=== PATIENT | male | born 1945 | race Native Hawaiian/Other Pacific Islander ===

== ENCOUNTER 2017-03-27 10:45 | Inpatient (IN) | payer BC, MEDICARE ==
[2017-03-27] MEDS ORDERED: ONDANSETRON 4 MG/2 ML VIAL IVP STA (10:52)
[2017-03-27] MEDS ORDERED: SODIUM CHLORIDE 0.9% 1,000 ML IV STA (10:52)
[2017-03-27 11:16] LABS: Glucose,Whole Blood 162 mg/dL (75-99)
--- NOTE | 2017-03-27 11:22 | ED ---
General Adult HPI - General Chief complaint: Neuro Symptoms/Deficit Stated complaint: Stroke Time Seen by Provider: 03/27/17 10:52 Source: EMS, RN notes reviewed Mode of arrival: EMS Limitations: altered mental status, physical limitation - History of Present Illness Initial comments: Patient is a pleasant 72-year-old male presenting to the emergency department with concerns for stroke. Patient has some garbled speech and is a poor historian. Majority of history comes from EMS. Last known well was 9 PM last night. No known history of similar problems previously. Patient is a known diabetic and EMS reports that sugar 150. Patient denies any pain or confusion. Patient is able to move answer yes and no however speech is slurred and garbled. - Related Data Home Medications Medication Instructions Recorded Confirmed Atenolol [Tenormin] 50 mg PO DAILY 10/07/16 03/27/17 Fenofibrate Nanocrystallized 145 mg PO DAILY 10/07/16 03/27/17 [Fenofibrate] Multivitamins, Thera [Multivitamin] 1 tab PO DAILY 10/07/16 03/27/17 Petroleum-3 Acid Ethyl Esters [Lovaza] 2 gm PO BID 10/07/16 03/27/17 Pravastatin Sodium [Pravachol] 20 mg PO DAILY 10/07/16 03/27/17 Ramipril [Altace] 15 mg PO DAILY 10/07/16 03/27/17 glipiZIDE [Glucotrol] 5 mg PO AC-BRKFST 10/07/16 03/27/17 metFORMIN HCL [metFORMIN HCL ER] 500 mg PO QID 10/07/16 03/27/17 Levocetirizine Dihydrochloride 5 mg PO DAILY 03/27/17 03/27/17 Allergies Allergy/AdvReac Type Severity Reaction Status Date / Time Penicillins Allergy Rash/Hives Verified 10/10/16 07:20 Review of Systems ROS Statement: Those systems with pertinent positive or pertinent negative responses have been documented in the HPI. ROS Other: All systems not noted in ROS Statement are negative. Constitutional: Denies: fever Eyes: Denies: eye pain ENT: Denies: ear pain Respiratory: Denies: cough Cardiovascular: Denies: chest pain Endocrine: Denies: fatigue Gastrointestinal: Denies: abdominal pain Genitourinary: Denies: urgency Musculoskeletal: Denies: back pain Skin: Denies: rash Neurological: Denies: headache, confusion Past Medical History Past Medical History: Diabetes Mellitus, Hyperlipidemia, Hypertension History of Any Multi-Drug Resistant Organisms: None Reported Past Surgical History: Hernia Repair, Prostate Surgery Additional Past Surgical History / Comment(s): carpal tunnel jairo., hernia surgery x2 Past Anesthesia/Blood Transfusion Reactions: No Reported Reaction Past Psychological History: No Psychological Hx Reported Smoking Status: Never smoker Past Alcohol Use History: Occasional Past Drug Use History: None Reported - Past Family History Mother Family Medical History: No Reported History General Exam Limitations: altered mental status, physical limitation General appearance: alert, in no apparent distress Head exam: Present: atraumatic Eye exam: Present: normal appearance, PERRL, other (Limited gaze towards the right) ENT exam: Present: normal oropharynx Neck exam: Present: normal inspection Respiratory exam: Present: normal lung sounds bilaterally Cardiovascular Exam: Present: regular rate, normal rhythm GI/Abdominal exam: Present: soft. Absent: tenderness Extremities exam: Present: normal inspection Neurological exam: Present: alert Expanded Neurological exam: Present: protecting the airway, other (Right-sided neglect. Right facial palsy.) Speech: Present: expressive aphasia Cranial nerves: EOM's Intact: Abnormal Right, Abnormal Left (Abnormal gaze towards the right with both eyes), Facial Sensation: Normal Sensory exam: Upper Extremity Light Touch: Abnormal Right, Lower Extremity Light Touch: Abnormal Right Motor strength exam: RUE: 0 (Flaccid), LUE: 5, RLE: 0 (Flaccid), LLE: 5 Eye Response: (4) open spontaneously Motor Response: (6) obeys commands Verbal Response: incomprehensible sounds Psychiatric exam: Present: normal affect, normal mood Skin exam: Present: normal color Course Vital Signs 03/27/17 03/27/17 03/27/17 10:51 10:54 11:00 Temperature 98.5 F Pulse Rate 62 Respiratory 18 Rate Blood Pressure 202/84 194/84 202/84 O2 Sat by Pulse 98 Oximetry 03/27/17 03/27/17 03/27/17 11:06 11:21 11:47 Temperature Pulse Rate 68 59 L Respiratory 16 Rate Blood Pressure 183/81 200/75 200/75 O2 Sat by Pulse 100 100 Oximetry 03/27/17 12:07 Temperature Pulse Rate 68 Respiratory 16 Rate Blood Pressure 170/93 O2 Sat by Pulse 100 Oximetry EKG Findings - EKG Comments: EKG Findings:: Sinus bradycardia 59. OR 182. QRS 140. QTc 482. QTC 477. Left axis. Right bundle branch block. No acute ST change. Medical Decision Making - Medical Decision Making Patient reevaluated and unchanged. Family updated on results and concerns. Case was discussed with Dr. Zambrano, who will admit his patient. Patient is not a candidate for TPA secondary to last known well greater than 4.5 hours. - Lab Data Result diagrams: 03/27/17 10:57 Lab Results 03/27/17 03/27/17 03/27/17 Range/Units 10:57 10:57 11:11 WBC 6.4 (3.8-10.6) k/uL RBC 4.25 L (4.30-5.90) m/uL Hgb 14.6 (13.0-17.5) gm/dL Hct 41.0 (39.0-53.0) % MCV 96.6 (80.0-100.0) fL MCH 34.5 (25.0-35.0) pg MCHC 35.7 (31.0-37.0) g/dL RDW 13.0 (11.5-15.5) % Plt Count 280 (150-450) k/uL Neutrophils % 65 % Lymphocytes % 27 % Monocytes % 6 % Eosinophils % 0 % Basophils % 0 % Neutrophils # 4.1 (1.3-7.7) k/uL Lymphocytes # 1.7 (1.0-4.8) k/uL Monocytes # 0.4 (0-1.0) k/uL Eosinophils # 0.0 (0-0.7) k/uL Basophils # 0.0 (0-0.2) k/uL Hyperchromasia Slight PT 11.9 (9.0-12.0) sec INR 1.2 (<1.1) APTT 21.3 L (22.0-30.0) sec POC Glucose (mg/dL) 162 H (75-99) mg/dL POC Glu Ichthyology Teacher ID Nona Viera - Radiology Data Radiology results: image reviewed (Computed tomography scan of the brain read by Dr. Johnson at 11:21 AM shows subacute left MCA infarct.) Disposition Clinical Impression: Cerebrovascular accident Disposition: ADMITTED IP TO THIS HOSP Condition: Serious Time of Disposition: 11:34
--- NOTE | 2017-03-27 11:25 | CT ---
EXAMINATION TYPE: CT brain wo con for TPA DATE OF EXAM: 03/27/2017 COMPARISON: NONE HISTORY: Rt arm weakness, looking off to the Lt. Altered mental status CT DLP: 1090.4 mGycm Automated exposure control for dose reduction was used. FINDINGS: There are mild, generalized changes of sulcal prominence and ventriculomegaly, compatible with atroph ic change. There is diffuse periventricular white matter lucency, compatible with chronic white matte r ischemic change. There is loss of teixeira-white differentiation along the insular cortex and extending into the left parietal region. There is mild associated mass effect. There is no evidence of intracr anial hemorrhage. There is mild mucoperiosteal thickening involving the ethmoid sinuses and left maxillary sinus. The m astoid air cells are clear. IMPRESSION: 1. SUBACUTE LEFT MCA INFARCT. 2. MILD, CHRONIC SINUS MUCOSAL DISEASE.
--- NOTE | 2017-03-27 11:33 | XR ---
EXAMINATION TYPE: XR chest 1V portable DATE OF EXAM: 03/27/2017 HISTORY: altered mental status. REFERENCE: NONE. FINDINGS: The heart is enlarged. There is vascular congestion. There is interstitial change in the ri ght lung. There is bibasilar airspace disease. IMPRESSION: 1. CARDIOMEGALY. 2. MILD VASCULAR CONGESTION. 3. BIBASILAR AIRSPACE DISEASE. 4. I CANNOT EXCLUDE SOME MILD HEART FAILURE.
[2017-03-27 11:44] LABS: Basophils % (A) 0 %; CH 35.6; CHCM 37.1; Eosinophils % (A) 0 %; HDW 3.31; HGB 14.6 gm/dL (13.0-17.5); Hyperchromasia Slight; Luc # (Auto) 0.12; Luc % (Auto) 2; Lymphocytes # (A) 1.7 k/uL (1.0-4.8); Lymphocytes % (A) 27 %; MCH 34.5 pg (25.0-35.0); MCHC 35.7 g/dL (31.0-37.0); MCV 96.6 fL (80.0-100.0); Mean Platelet Volume 7.1; Monocytes # (A) 0.4 k/uL (0-1.0); Monocytes % (A) 6 %; Neutrophils # (A) 4.1 k/uL (1.3-7.7); Neutrophils % (A) 65 %; RBC 4.25 m/uL (4.30-5.90); WBC 6.4 k/uL (3.8-10.6); WBC (Perox) 6.42
[2017-03-27 11:53] LABS: INR 1.2 (<1.1); Prothrombin Time 11.9 sec (9.0-12.0)
[2017-03-27 11:56] LABS: Partial Thromboplastin Time 21.3 sec (22.0-30.0)
[2017-03-27 12:09] LABS: ALT 37 U/L (21-72); AST 28 U/L (17-59); Alkaline Phosphatase 23 U/L (38-126); Anion Gap 12 mmol/L; Blood Urea Nitrogen 13 mg/dL (9-20); Calcium 9.4 mg/dL (8.4-10.2); Carbon Dioxide 25 mmol/L (22-30); Chloride 106 mmol/L (98-107); Glucose 161 mg/dL (74-99); Non-African American GFR(MDRD) >60 (>60 ml/min/1.73 sqM); Potassium 3.8 mmol/L (3.5-5.1); Sodium 143 mmol/L (137-145); Total Bilirubin 1.1 mg/dL (0.2-1.3)
[2017-03-27] MEDS: ASPIRIN 300 MG SUPP RECTAL SCH (12:09)
[2017-03-27 12:21] LABS: Creatine Kinase 137 U/L (55-170)
[2017-03-27 12:35] LABS: Creatine Kinase MB 1.3 ng/mL (0.0-2.4); Troponin I <0.012 ng/mL (0.000-0.034)
--- NOTE | 2017-03-27 12:50 | US ---
EXAMINATION TYPE: US carotid duplex BILAT DATE OF EXAM: 03/27/2017 COMPARISON: NONE CLINICAL HISTORY: Stenosis. Right sided drooping EXAM MEASUREMENTS: RIGHT: Peak Systolic Velocity (PSV) cm/sec ----- Right CCA: 54.0 ----- Right ICA: 72.3 ----- Right ECA: 39.1 ICA/CCA ratio: 1.3 RIGHT: End Diastole cm/sec ----- Right CCA: 9.5 ----- Right ICA: 21.7 ----- Right ECA: 0.0 LEFT: Peak Systolic Velocity (PSV) cm/sec ----- Left CCA: 22.7 ----- Left ICA: only thumping heard, no detectable flow ----- Left ECA: only thumping heard, no detectable flow ICA/CCA ratio: N/A LEFT: End Diastole cm/sec ----- Left CCA: 7.8 ----- Left ICA: only thumping heard, no detectable flow ----- Left ECA: only thumping heard, no detectable flow VERTEBRALS (direction of flow): Right Vertebral: Antegrade Left Vertebral: Antegrade No flow detected left ICA or ECA, only thumping heard consistent with distal occlusion. IMPRESSION: 1. Occlusion of the distal left CCA. 2. No evidence of a hemodynamically significant stenosis in the right ICA. Criteria for Assigning % of Stenosis / Diameter reduction (Estimation based on the indirect measurements of the internal carotid artery velocities (ICA PSV). 1. Normal (no stenosis)=ICA PSV < 125 cm/s: ratio < 2.0: ICA EDV<40 cm/s. 2. Less than 50% stenosis=ICA PSV < 125 cm/s: ratio < 2.0: ICA EDV<40 cm/s. 3. 50 to 69% stenosis=ICA PSV of 125 to 230 cm/s: ration 2.0 ? 4.0: ICA EDV 40-100 cm/s. 4. Greater than 70% stenosis to near occlusion= ICA PSV > 230 cm/s: ratio > 4.0: ICA EDV > 100 cm/s. 5. Near occlusion= ICA PSV velocities may be low or undetectable: variable ratio and ICA EDV. 6. Total occlusion=unable to detect flow.
--- NOTE | 2017-03-27 20:22 | MR ---
EXAMINATION TYPE: MR brain wo/w con DATE OF EXAM: 03/27/2017 COMPARISON: NONE HISTORY: CVA, RT SIDE WEAKNESS AND NUMBNESS CONTRAST: Standard multiplanar, multisequence MRI departmental protocol utilizing 20 mL intravenous MultiHance gadolinium contrast. FINDINGS: On the diffusion images and T2 images there is abnormal increased signal involving a large area of the left temporal lobe. This measures 10 x 5 cm. There is no mass effect. There is no midline shift. Sella turcica appears normal. Brainstem is intact. Corpus callosum is intact. Contrast images show no pathologic enhancement. There is mild cerebral cortical atrophy. IMPRESSION: Large area of cerebral edema involving the left temporal lobe consistent with acute left middle cereb ral artery infarct. No mass effect. Area of involvement is unchanged compared to the CT scan this mor blanche at 11:00 AM.
[2017-03-27] MEDS: SODIUM CHLORIDE 0.9% 1,000 ML IV SCH ×2 (21:02→21:03)
--- NOTE | 2017-03-27 22:41 | P.CNNES ---
History of Present Illness Consult date: 03/27/17 Requesting physician: Tuan Lopez Reason for Consult: CVA Chief complaint: CVAright sided neglect History of Present Illness: Neurology consult seeing on a 72-year-old male who was brought to the emergency department for possible stroke earlier today. Patient was last known to be without deficits at 9 PM last night. Patient has no prior history of CVA or TIA. Patient is a known diabetic. At time of transfer with EMS patient sugar was 150. Patient denied any pain or confusion while in transport. Patient was initially able to answer questions but was noted to have slurred and garbled speech. ED staff determined that the patient was outside the TPA window. CT of the brain noted Atrophic changes, periventricular white matter lucency compatible with chronic white matter ischemic change. Loss of graywhite differentiation along the insular cortex and extending into the left parietal region. Mild mass effect. No evidence of intracranial hemorrhage. Patient's carotid Doppler study noted an occlusion of the left common carotid artery. Patient is known to have a history of hypertension, hyperlipidemia and diabetes. At contact, the patient was supine in bed, Alert and oriented 1, with right- sided neglect of Upper and lower extremities, right-sided facial droop, expressive aphasia and memory loss. Patient's speech was extremely slurred and garbled. Patient was unable to routinely respond appropriately to questions and verbal commands. Review of Systems Systems not noted in HPI previously are considered negative. Past Medical History Past Medical History: Diabetes Mellitus, Hyperlipidemia, Hypertension Additional Past Medical History / Comment(s): NIDDM type II, prostate cancer with surgery, diverticular dx History of Any Multi-Drug Resistant Organisms: None Reported Past Surgical History: Hernia Repair, Orthopedic Surgery, Prostate Surgery Additional Past Surgical History / Comment(s): carpal tunnel jairo., bilateral inguinal hernia surgeries, colonoscopy, bilateral cataract removal. Past Anesthesia/Blood Transfusion Reactions: No Reported Reaction Past Psychological History: No Psychological Hx Reported Additional Psychological History / Comment(s): Pt resides with his significant other of 30 yrs. He is independent. Smoking Status: Former smoker Past Alcohol Use History: Occasional Additional Past Alcohol Use History / Comment(s): Pt started smoking in 1962 and quit in 1982 Past Drug Use History: None Reported - Past Family History Mother Family Medical History: Myocardial Infarction (GA) Additional Family Medical History / Comment(s): Mother of a GA in her 80's Father Family Medical History: Myocardial Infarction (GA) Additional Family Medical History / Comment(s): Father of a GA in his 80's. Medications and Allergies Home Medications Medication Instructions Recorded Confirmed Type Atenolol [Tenormin] 50 mg PO DAILY 10/07/16 03/27/17 History Fenofibrate Nanocrystallized 145 mg PO DAILY 10/07/16 03/27/17 History [Fenofibrate] Multivitamins, Thera [Multivitamin] 1 tab PO DAILY 10/07/16 03/27/17 History Hollis-3 Acid Ethyl Esters [Lovaza] 2 gm PO BID 10/07/16 03/27/17 History Pravastatin Sodium [Pravachol] 20 mg PO DAILY 10/07/16 03/27/17 History Ramipril [Altace] 15 mg PO DAILY 10/07/16 03/27/17 History glipiZIDE [Glucotrol] 5 mg PO AC-BRKFST 10/07/16 03/27/17 History metFORMIN HCL [metFORMIN HCL ER] 500 mg PO QID 10/07/16 03/27/17 History Levocetirizine Dihydrochloride 5 mg PO DAILY 03/27/17 03/27/17 History Allergies Allergy/AdvReac Type Severity Reaction Status Date / Time Penicillins Allergy Rash/Hives Verified 10/10/16 07:20 Physical Examination - Vital Signs Vital Signs: Vital Signs Temp Pulse Pulse Resp BP BP Pulse Ox 03/27/17 20:00 97.1 F L 63 17 178/82 97 03/27/17 16:00 97.6 F 78 16 194/81 97 03/27/17 12:40 98.3 F 67 16 160/78 96 03/27/17 12:07 98.6 F 68 16 170/93 100 03/27/17 11:47 59 L 16 200/75 100 03/27/17 11:21 68 200/75 100 03/27/17 11:06 183/81 03/27/17 11:00 98.5 F 62 18 202/84 98 03/27/17 10:54 194/84 03/27/17 10:51 202/84 Intake and Output 03/27/17 03/27/17 03/27/17 06:59 14:59 22:59 Other: Voiding Method Diaper Diaper Weight 104.326 kg Patient Weight 03/28/17 06:59 Weight 104.326 kg Constitutional: AOx1, cooperative HEENT: NC/AT, no facial asymmetry is seen. Throat: Supple, no masses Respiratory: Patient on nasal cannula supplemental oxygen. Cardiac: Her telemetry documented normal sinus rhythm GI: non tender, non distended Musculoskeletal: Full right-sided neglect of upper and lower extremities, left- sided upper and lower extremities 3+ out of 5 Neurological: Patient is alert and oriented 1name only, speech and language are Garbled/expressive aphasia, unilateralizing Weakness/krunal-neglectright upper and lower extremity, no seizure activity note on physical exam. Sensation was Abnormal. Integementary: no rash, no erythema Psychiatric: Flat Results Carotid Doppler: Complete occlusion of the left CCA, right ICA no hemodynamically significant stenosis CT brain as previously stated in HPI MRI of the brain: Large area of cerebral edema involving the left temporal lobe consistent with acute left MCA infarct. No mass effect. Area of involvement is unchanged compared to CT scan in the morning at 11 AM. - Laboratory Findings CBC and BMP: 03/27/17 10:57 03/27/17 10:57 Abnormal Lab Findings: Abnormal Labs 03/27/17 03/27/17 03/27/17 10:57 10:57 10:57 RBC 4.25 L APTT 21.3 L Glucose 161 H POC Glucose (mg/dL) Alkaline Phosphatase 23 L 03/27/17 11:11 RBC APTT Glucose POC Glucose (mg/dL) 162 H Alkaline Phosphatase Assessment and Plan (1) Carotid stenosis, left Status: Acute (2) Type 2 diabetes mellitus Status: Acute (3) Hypertension Status: Acute (4) Hyperlipidemia Status: Acute (5) Cerebrovascular accident Status: Acute Plan: 1. CVAleft MCA 2. Carotid stenosisleft CCA 3. Hypertension 4. Hyperlipidemia 5. Type 2 diabetes CVA, carotid stenosis: Based on results of imaging, the patient has a confirmed significant left MCA CVA. On exam the patient has complete right upper and lower extremity neglect and deficits. Patient has expressive aphasia, difficulty swallowing and difficulty with memory and recall. Hypertension: Maintain SBP between 140 and 160. If reduction is necessary, contact neurology for reduction parameters. Hyperlipidemia: Lipid panel pending Type 2 diabetes: Continue POC glucose testing as ordered. Ordered/pending: SCD's Protonix 40 mg dailyGI prophylaxis Heparin 5000 units every 8 hours subcutaneous for DVT prophylaxis Rectal aspirincontinue with existing regimen PT and OT consult Vascular consult Neuro checks as ordered Telemetry monitoring as orderedcontinuous unless discontinue by cardiology and neurology Diet: Nothing by mouthfailed swallow study, repeat in 24-48 hours. If no improvement after next swallow study, recommend other alternatives for nutrition which could include PEG tube in addition to family discussion related to goals of care for the patient. Neurology will provide updates as needed or warranted. Feel free to contact our office with any questions. Prognosis: POOR
[2017-03-28] MEDS: HEPARIN SODIUM,PORCINE 5,000 UNIT/ML 1 ML VIAL SQ SCH ×3 (01:15→17:16)
[2017-03-28 06:29] LABS: Cholesterol 135 mg/dL (<200); HDL Cholesterol 27 mg/dL (40-60); Triglycerides 260 mg/dL (<150)
--- NOTE | 2017-03-28 08:04 | ECHOF ---
Referral Reason:Thrombus MEASUREMENTS -------- HEIGHT: 182.9 cm WEIGHT: 104.3 kg BP: 130/40 IVSd: 1.5 cm (0.6 - 1.1) LVIDd: 4.0 cm (3.9 - 5.3) LVPWd: 1.2 cm (0.6 - 1.1) IVSs: 1.5 cm LVIDs: 3.7 cm LVPWs: 1.2 cm LAESV Index (A-L): 33.64 ml/m Ao Diam: 3.8 cm (2.0 - 3.7) AV Cusp: 2.0 cm (1.5 - 2.6) LA Diam: 4.5 cm (2.7 - 3.8) MV E Babar: 0.71 m/s MV DecT: 201 ms MV A Babar: 0.90 m/s MV E/A Ratio: 0.79 RAP: 5.00 mmHg RVSP: 29.59 mmHg FINDINGS -------- Sinus rhythm. This was a technically adequate study. There is mild concentric left ventricular hypertrophy. Overall left ventricular systolic function is low-normal with, an EF between 50 - 55 %. The right ventricle is normal in size. LA is midly dilated 29-33ml/m2. The right atrial size is normal. There is mild aortic valve sclerosis. There is no evidence of aortic regurgitation. Mild mitral annular calcification present. Mild mitral regurgitation is present. Mild tricuspid regurgitation present. There is no evidence of pulmonary hypertension. The right ventricular systolic pressure, as measured by Doppler, is 29.59mmHg. There is no pulmonic regurgitation present. The aortic root size is normal. There is no pericardial effusion. CONCLUSIONS -------- 1. There is mild concentric left ventricular hypertrophy. 2. Overall left ventricular systolic function is low-normal with, an EF between 50 - 55 %. 3. LA is midly dilated 29-33ml/m2. 4. There is mild aortic valve sclerosis. 5. Mild mitral annular calcification present. 6. Mild mitral regurgitation is present. 7. Mild tricuspid regurgitation present. 8. There is no evidence of pulmonary hypertension. 9. The right ventricular systolic pressure, as measured by Doppler, is 29.59mmHg. BRANDING MACHINE OPERATOR: Nichelle Kay RDCS
[2017-03-28] MEDS: SODIUM CHLORIDE 0.9% 1,000 ML IV SCH ×2 (10:32→17:16)
[2017-03-28] MEDS: PANTOPRAZOLE 40 MG/10 ML VIAL IVP SCH (10:33)
[2017-03-28] MEDS: ASPIRIN 300 MG SUPP RECTAL SCH (10:33)
[2017-03-28 11:55] LABS: Glucose,Whole Blood 134 mg/dL (75-99)
[2017-03-28] MEDS: INSULIN LISPRO (humaLOG) 300 UNIT/3 ML VIAL SQ SCH ×3 (12:44→20:51)
--- NOTE | 2017-03-28 15:18 | P.PN ---
Subjective Principal diagnosis: CVAright sided neglect Neurology is following a 72-year-old man was brought to the emergency department with a CVA. Patient was originally observed prior to going to sleep without any deficits. Patient with an active lifestyle prior to incident. Patient had no prior history of CVA or TIA. Patient is nondiabetic. Time of transfer with EMS patient's blood sugar was 150. While in transport the patient denied any pain or confusion. Initially patient was able to answer questions for EMS and ED providers. CT of the brain noted atrophic changes, periventricular white matter lucency compatible with chronic white matter ischemic change. Loss of graywhite differentiation along the insular cortex and extending into the left parietal region. Mild mass effect. Patient's MRI of the brain noted Acute left MCA infarct. No evidence of intracranial hemorrhage. Patient's carotid Doppler study noted occlusion of the left common carotid artery. Patient is known to have a history of hypertension, hyperlipidemia and diabetes. It is uncertain how well controlled the patient's diabetic status was prior to admission. On contact today, patient was awake supine in bed with family in the room. Patient still exhibited significant right-sided krunal-neglect, facial droop and inability to answer questions appropriately, formulate complete thoughts or ideas and or engage in interactive purposeful communication. Objective - Vital Signs Vital signs: Vital Signs Temp 99.8 F H 03/28/17 08:36 Pulse 66 03/28/17 08:36 Resp 18 03/28/17 08:36 BP 142/70 03/28/17 08:36 Pulse Ox 98 03/28/17 08:36 Intake & Output 03/27/17 03/28/17 03/28/17 18:59 06:59 18:59 Intake Total 400 Balance 400 Weight 104.326 kg 107 kg Intake: Intake, IV Titration 400 Amount Sodium Chloride 0.9% 1, 400 000 ml @ 100 mls/hr IV . Q10H [facility] Rx#:[id number] Other: Voiding Method Diaper Diaper Diaper # Voids 1 1 - Exam Constitutional: AOx1, Awake HEENT: NC/AT, Right facial asymmetry is seen. Throat: Supple, no masses Respiratory: No increased work of breathing Cardiac: Regular rate and Rhythm, Telemetry monitoring GI: non tender, non distended Musculoskeletal: Audio Technician strengths are unequal Complete right upper lower extremity neglect. Left upper and lower extremities are 4/5. Neurological: Patient is awake, speech and language are garbled with inaccurate responses when provided, right sided unilateralizing weakness (UE & LE), no seizure activity note on physical exam. Sensation was abnormal. Does not withdraw to pain on the right side. Integementary: no rash, no erythema Psychiatric: flat - Labs CBC & Chem 7: 03/27/17 10:57 03/27/17 10:57 Labs: Abnormal Lab Results - Last 24 Hours (Table) 03/28/17 03/28/17 Range/Units 06:03 11:53 POC Glucose (mg/dL) 134 H (75-99) mg/dL Triglycerides 260 H (<150) mg/dL HDL Cholesterol 27 L (40-60) mg/dL Assessment and Plan (1) Carotid stenosis, left Status: Acute (2) Type 2 diabetes mellitus Status: Acute (3) Hypertension Status: Acute (4) Hyperlipidemia Status: Acute (5) Cerebrovascular accident Status: Acute Plan: 1. CVAleft MCA 2. Carotid stenosisleft CCA 3. Hypertension 4. Hyperlipidemia 5. Type 2 diabetes CVA, carotid stenosis: Based on results of imaging, the patient has a confirmed significant left MCA CVA with an additional left CCA occlusion. On exam the patient has complete right upper and lower extremity neglect and deficits. Patient has expressive aphasia, difficulty swallowing and difficulty with memory and recall. Patient has made no neurological improvement in the last 24 hours. It does appear that the patient's cognition and speech have declined. Hypertension: Maintain SBP between 140 and 160. If reduction is necessary, contact neurology for reduction parameters. Hyperlipidemia: Lipid panel noted elevated trigycerides, low HDL Type 2 diabetes: Continue POC glucose testing, sliding scale insulin coverage orders placed Ordered-status: SCD's- continue per previous order Protonix 40 mg dailyGI prophylaxis- continue Heparin 5000 units every 8 hours subcutaneous for DVT prophylaxis- continue Rectal aspirincontinue with existing regimen- continue PT and OT - continue per existing plan of care Vascular consult- pending Neuro checks as ordered Telemetry monitoring as orderedcontinuous unless discontinue by cardiology and neurology Diet: Nothing by mouthfailed swallow study, repeat in 24-48 hours. If no improvement after next swallow study, recommend other alternatives for nutrition which could include PEG tube. EEG: pending Serum homocysteine: pending A1C: pending RECOMMEND FAMILY MEETING TO DISCUSS TREATMENT & GOALS OF CARE. Neurology will provide updates as needed or warranted. Feel free to contact our office with any questions. Prognosis: POOR
[2017-03-28 16:39] LABS: Glucose,Whole Blood 105 mg/dL (75-99)
--- NOTE | 2017-03-28 17:12 | CONS ---
DATE OF CONSULTATION: This is a 72-year-old gentleman who has been admitted to [facility] with history of CVA affecting his right side. This happened at home. No previous history of TIA ( ). Patient had a CT the brain. No intracranial hemorrhage noted. Ultrasound of the carotids shows left internal carotid totally occluded, right normal. 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 MEDICAL HISTORY: 1. History of diabetes mellitus. 2. Hypertension. 3. Hyperlipidemia. SURGICAL HISTORY: 1. Patient had a hernia repair done in the past. 2. Prostate surgery. 3. Orthopedic surgery. On examination, patient was seen in his room. NECK: Supple. No bruit appreciated. RESPIRATORY SYSTEM: Good air entry into both lungs. First and second sounds are normal. ABDOMEN: Soft. MUSCULOSKELETAL: Right side had flaccid paresis affecting upper and lower extremity. On left side patient has normal motor function. Brachial, radial and femoral pulses are present. IMPRESSION: Carotid artery totally occluded on the left internal carotid artery. MRI of the brain showed a large area of cerebral edema involving the left temporal lobe consistent with acute left middle cerebral artery infarct. RECOMMENDATION: At this point there is no role for surgical intervention. Patient needs to control his blood sugar. Patient will need physical therapy. I have discussed in detail with the family, and they understand. Will follow with you.
[2017-03-28 17:21] LABS: Hemoglobin A1C 6.1 % (4.2-6.1)
[2017-03-28] MEDS ORDERED: ACETAMINOPHEN IV (For NPO) 1,000 MG in EMPTY BAG 1 BAG IVPB ONE (17:42)
[2017-03-28] MEDS ORDERED: ACETAMINOPHEN SUPPOSITORY 650 MG SUPP RECTAL PRN (17:43)
--- NOTE | 2017-03-28 18:47 | XR ---
EXAMINATION TYPE: XR chest 1V portable DATE OF EXAM: 03/28/2017 CLINICAL HISTORY: Fever. TECHNIQUE: Single AP portable upright view of the chest is obtained. COMPARISON: Chest x-ray from one day earlier FINDINGS: There is stable mild cardiomegaly. There is persistent left greater than right bibasilar o pacity. No large pleural effusion or pneumothorax is seen bilaterally. Somewhat low lung volumes are redemonstrated. Osseous structures are intact. IMPRESSION: Cardiomegaly with left greater than right bibasilar atelectasis and/or infiltrate redemon strated. No significant change from prior study.
[2017-03-28 20:50] LABS: Glucose,Whole Blood 99 mg/dL (75-99)
[2017-03-29] MEDS: HEPARIN SODIUM,PORCINE 5,000 UNIT/ML 1 ML VIAL SQ SCH ×4 (01:35→23:24)
[2017-03-29 03:18] LABS: Appearance,Urine Clear (Clear); Bilirubin,Urine Negative (Negative); Glucose,Urine (UA) Trace (Negative); Ketones,Urine Trace (Negative); Leukocyte Esterase,Urine Negative (Negative); Mucus,Urine Rare /hpf; Nitrite,Urine Negative (Negative); PH, Urine 5.5 (5.0-8.0); Particle Count 3143; Protein,Urine Trace (Negative); RBC,Urine 9 /hpf (0-5); Squamous Epithelial Cell,Urine 5 /hpf (0-4); UA Billing (MACRO vs. MICRO) MICRO; Urobilinogen,Urine <2.0 mg/dL (<2.0); WBC,Urine 1 /hpf (0-5)
[2017-03-29] MEDS: SODIUM CHLORIDE 0.9% 1,000 ML IV SCH ×3 (05:50→23:26)
[2017-03-29 06:25] LABS: Glucose,Whole Blood 114 mg/dL (75-99)
[2017-03-29 06:33] LABS: Basophils % (A) 0 %; CH 35.2; Eosinophils # (A) 0.1 k/uL (0-0.7); Eosinophils % (A) 2 %; HCT 38.1 % (39.0-53.0); HDW 3.46; HGB 13.9 gm/dL (13.0-17.5); Hyperchromasia Slight; Luc # (Auto) 0.13; Luc % (Auto) 2; Lymphocytes # (A) 1.8 k/uL (1.0-4.8); Lymphocytes % (A) 24 %; MCH 34.9 pg (25.0-35.0); MCHC 36.5 g/dL (31.0-37.0); MCV 95.6 fL (80.0-100.0); Mean Platelet Volume 7.1; Monocytes # (A) 0.3 k/uL (0-1.0); Monocytes % (A) 4 %; Neutrophils # (A) 5.1 k/uL (1.3-7.7); Neutrophils % (A) 68 %; Poikilocytosis Slight; RBC 3.98 m/uL (4.30-5.90); RDW 13.1 % (11.5-15.5); WBC 7.5 k/uL (3.8-10.6); WBC (Perox) 7.99
[2017-03-29] MEDS: INSULIN LISPRO (humaLOG) 300 UNIT/3 ML VIAL SQ SCH ×4 (06:33→21:41)
[2017-03-29 06:46] LABS: Anion Gap 11 mmol/L; Blood Urea Nitrogen 10 mg/dL (9-20); Calcium 8.5 mg/dL (8.4-10.2); Carbon Dioxide 23 mmol/L (22-30); Chloride 111 mmol/L (98-107); Glucose 115 mg/dL (74-99); Non-African American GFR(MDRD) >60 (>60 ml/min/1.73 sqM); Potassium 3.5 mmol/L (3.5-5.1); Sodium 145 mmol/L (137-145)
--- NOTE | 2017-03-29 08:08 | HP ---
DATE OF ADMISSION: 03/27/2017 CHIEF COMPLAINT: Unable to move the right side of the body. HISTORY OF PRESENT ILLNESS: Mr. Javier is a 72-year-old male with past medical history of diabetes mellitus, hypertension, hyperlipidemia, brought into the emergency department as the patient was not able to move the right side of his body since this morning. The patient is unable to give any history so most of the history is taken from the ER notes and nursing staff report and from his son who is at the bedside. The patient did go to bed around 9:00 last night and his did see him in the morning around 6:00. He usually wakes up at around 8:00 a.m. but as it was 9:00 a.m. and he was still not getting out of the bed, his went to check on him when she found that he did urinate and he was not able to move the right side of his body and his speech was garbled, so she called her son immediately who notified the EMS services and the patient was brought into the hospital. Patient was out of the TPA window as per the ED notes. The patient did have a CT of his brain which was showing a left MCA infarct but there was no evidence of IC blead and he did also have carotid artery Doppler study, which was showing occlusion of the left common carotid artery. The patient has been evaluated by neurology and has been started on aspirin. PT, OT has been consulted. Today, the patient is lying in his bed. He has garbled speech. He just yes or no and he is able to follow simple commands, but not able to give any history. Review of Systems could not be done as the patient has acute stroke. PAST MEDICAL HISTORY: Positive for hypertension, hyperlipidemia and type 2 diabetes mellitus. ALLERGIES: PENICILLIN. Patient's home medications: 1. [place]-3 fatty acids 2 grams p.o. b.i.d. 2. Atenolol 50 mg p.o. daily. 3. Glipizide 5 mg p.o. with breakfast. 4. Ramipril 50 mg p.o. daily. 5. Pravastatin 20 mg p.o. daily. 6. Multivitamin 1 tablet p.o. daily. 7. Metformin 500 mg p.o. daily. 8. Fenofibrate 145 mg p.o. daily. 9. ( ) 5 mg p.o. daily. PAST SURGICAL HISTORY: Positive for hernia repair, orthopedic surgery, prostate surgery, carpal tunnel surgery, bilateral inguinal hernia repair. SOCIAL HISTORY: Former smoker. Occasional alcohol. Quit smoking in 1982. FAMILY HISTORY: Positive for FL in his mother who at the age of 80. On examination, patient's vital signs temperature 99.2, heart rate 98, respiratory rate 16, blood pressure 117/77, Respiratory rate is 16, saturating at 97% on 1 liter nasal cannula. GENERAL EXAMINATION: Patient appears to be no acute distress. HEAD: Atraumatic, normocephalic. No facial asymmetry. NECK: No JVD. CARDIAC: S1, S2 heard. RESPIRATORY: Bilateral breath sounds are positive. No wheezes or crackles. GI: Abdomen is soft, nontender. Bowel sounds are positive. EXTREMITIES: No edema. Pulses felt. BILL CUTTER: Patient is alert, awake, he follows simple commands oriented x1. His speech is garbled. She says yes or no to most of the questions. Possible expressive aphasia. Right-sided hemiparesis both right and upper and lower extremity. SKIN: No rash. The patient's labs: White count is 6.4, hemoglobin 14.6, platelets of 280. Sodium 143, potassium 3.8, chloride 106, bicarb 25, BUN 13, creatinine 0.92, AST 28, ALT 37, alkaline phosphatase 23, troponin 0.012, ( ) 260, LDL 56. CT of the brain showing left MCA subacute infarct, carotid Doppler showing occlusion of the distal left common carotid artery. MRI of the brain large area of ( ) involving the left temporal lobe consistent with acute left middle cerebral artery infarct. No mass effect. ASSESSMENT AND PLAN: 1. Acute left MCA infarct. 2. Left common carotid artery stenosis. 3. Hypertension. 4. Hyperlipidemia. 5. Type 2 diabetes mellitus. 6. History of prostate cancer, status post surgery. 7. History of bilateral carpal tunnel surgery. 8. Bilaterally inguinal hernia repair done in the past. PLAN: Patient to continue on deep venous thrombosis and gastrointestinal prophylaxis. Neurology on board following the patient. A vascular consult for Dr. Hernandes has been placed for the carotid stenosis. PT and OT on board. The treatment plan of care was discussed in detail with the patient's son who is at the bedside. Multiple family members in the room had questions which were answered and explained in detail. Further recommendations to follow depending on the progress of the patient. Overall prognosis is guarded.
[2017-03-29] MEDS: PANTOPRAZOLE 40 MG/10 ML VIAL IVP SCH (09:11)
[2017-03-29 11:43] LABS: Glucose,Whole Blood 113 mg/dL (75-99)
[2017-03-29] MEDS: ASPIRIN 300 MG SUPP RECTAL SCH (11:51)
[2017-03-29] MEDS: hydrALAZINE HCL 20 MG/ML 1 ML VIAL IVP PRN ×2 (11:53→16:11)
--- NOTE | 2017-03-29 12:53 | P.PN ---
Subjective Principal diagnosis: CVAright sided neglect Neurology is following a 72-year-old man was brought to the emergency department with a CVA. Patient was originally observed prior to going to sleep without any deficits. Patient with an active lifestyle prior to incident. Patient had no prior history of CVA or TIA. Patient is nondiabetic. Time of transfer with EMS patient's blood sugar was 150. While in transport the patient denied any pain or confusion. Initially patient was able to answer questions for EMS and ED providers. CT of the brain noted atrophic changes, periventricular white matter lucency compatible with chronic white matter ischemic change. Loss of graywhite differentiation along the insular cortex and extending into the left parietal region. Mild mass effect. Patient's MRI of the brain noted Acute left MCA infarct. No evidence of intracranial hemorrhage. Patient's carotid Doppler study noted occlusion of the left common carotid artery. Patient is known to have a history of hypertension, hyperlipidemia and diabetes. It is uncertain how well controlled the patient's diabetic status was prior to admission. 03/29/17 On contact today, patient was awake supine in bed with family in the room. Patient still exhibited significant right-sided krunal-neglect, facial droop and inability to answer questions appropriately, formulate complete thoughts or ideas and or engage in interactive purposeful communication. Per nursing and family patient appears to wax and wane with regard to his ability to answer questions or follow commands. Patient's SBP was > 200 today and per nursing was elevated the last several hours before patient was rounded on today. Objective - Vital Signs Vital signs: Vital Signs Temp 98.9 F 03/29/17 11:45 Pulse 70 03/29/17 11:45 Resp 18 03/29/17 11:45 BP 192/83 03/29/17 11:45 Pulse Ox 95 03/29/17 11:45 Intake & Output 03/28/17 03/29/17 03/29/17 18:59 06:59 18:59 Intake Total 1000 Balance 1000 Weight 108.5 kg Intake: Intake, IV Titration 1000 Amount Sodium Chloride 0.9% 1, 1000 000 ml @ 100 mls/hr IV . Q10H [facility] Rx#:[id number] Other: Voiding Method Diaper Diaper Diaper # Voids 1 1 1 - Exam Constitutional: AOx1, Awake HEENT: NC/AT, Right facial asymmetry is seen. Throat: Supple, no masses Respiratory: No increased work of breathing Cardiac: Regular rate and Rhythm, Telemetry monitoring GI: non tender, non distended Musculoskeletal: Adoption Services Manager strengths are unequal Complete right upper lower extremity neglect. Left upper and lower extremities are 3/5. Neurological: Patient is awake, speech and language are garbled with inaccurate responses when provided, right sided unilateralizing weakness (UE & LE), no seizure activity note on physical exam. Sensation was abnormal. Does not withdraw to pain on the right side. Integementary: no rash, no erythema Psychiatric: flat - Labs CBC & Chem 7: 03/29/17 06:03 03/29/17 06:03 Labs: Abnormal Lab Results - Last 24 Hours (Table) 03/28/17 03/29/17 03/29/17 Range/Units 16:38 03:00 06:03 RBC 3.98 L (4.30-5.90) m/uL Hct 38.1 L (39.0-53.0) % Chloride (98-107) mmol/L Glucose (74-99) mg/dL POC Glucose (mg/dL) 105 H (75-99) mg/dL Urine Protein Trace H (Negative) Urine Glucose (UA) Trace H (Negative) Urine Ketones Trace H (Negative) Urine Blood Small H (Negative) Urine RBC 9 H (0-5) /hpf Ur Squamous Epith Cells 5 H (0-4) /hpf Urine Mucus Rare H (None) /hpf 03/29/17 03/29/17 03/29/17 Range/Units 06:03 06:24 11:42 RBC (4.30-5.90) m/uL Hct (39.0-53.0) % Chloride 111 H (98-107) mmol/L Glucose 115 H (74-99) mg/dL POC Glucose (mg/dL) 114 H 113 H (75-99) mg/dL Urine Protein (Negative) Urine Glucose (UA) (Negative) Urine Ketones (Negative) Urine Blood (Negative) Urine RBC (0-5) /hpf Ur Squamous Epith Cells (0-4) /hpf Urine Mucus (None) /hpf Microbiology - Last 24 Hours (Table) 03/29/17 03:00 Urine Culture - Preliminary Urine,Catheterized Assessment and Plan (1) Carotid stenosis, left Status: Acute (2) Type 2 diabetes mellitus Status: Acute (3) Hypertension Status: Acute (4) Hyperlipidemia Status: Acute (5) Cerebrovascular accident Status: Acute Plan: 1. CVAleft MCA 2. Carotid stenosisleft CCA 3. Hypertension 4. Hyperlipidemia 5. Type 2 diabetes CVA, carotid stenosis: Based on results of imaging, the patient has a confirmed significant left MCA CVA with an additional left CCA occlusion. On exam the patient has complete right upper and lower extremity neglect and deficits. Patient has expressive aphasia, difficulty swallowing and difficulty with memory and recall. Patient has made no neurological improvement in the last 24 hours. It does appear that the patient's cognition and speech has stabilized with intermittent waxing and waning. Hypertension: Maintain SBP between 140 and 160. Patient's SBP was > 200 and protocols were given: Hydralazine 10 mg, IV push Q4hrs prn for SBP>160 and Labetalol 10 mg, Q4hrs, IV push for SBP> 160. Hyperlipidemia: Lipid panel noted elevated trigycerides, low HDL Type 2 diabetes: Continue POC glucose testing, continue sliding scale insulin coverage orders Ordered-status: SCD's- continue per previous order Protonix 40 mg dailyGI prophylaxis- continue Heparin 5000 units every 8 hours subcutaneous for DVT prophylaxis- continue Rectal aspirincontinue with existing regimen PT and OT - continue per existing plan of care Vascular consult- no intervention recommended Neuro checks as ordered Telemetry monitoring as orderedcontinuous unless discontinue by cardiology and neurology Diet: Nothing by mouthfailed swallow study. Repeat Swallow study - ordered for 6-12-17. If no improvement after next swallow study, recommend other alternatives for nutrition which could include PEG tube. EEG: pending Serum homocysteine: pending A1C: 6.1 RECOMMEND FAMILY MEETING TO DISCUSS TREATMENT, GOALS OF CARE AND PLACEMENT. Neurology will provide updates as needed or warranted. Feel free to contact our office with any questions. Prognosis: POOR I discussed the patient's pertinent medical information with Dr. Lopez. He agrees with the plan of care as implemented.
[2017-03-29 16:56] LABS: Glucose,Whole Blood 106 mg/dL (75-99)
--- NOTE | 2017-03-29 17:18 | PN ---
This is a 72-year-old gentleman who has been admitted with CVA affecting right side, flaccid paresis of the right arm and right leg day. Yesterday patient could not talk, today he can talk, but he still has a of facial droop. Patient had a carotid ultrasound which shows left internal totally occluded. Patient still has difficulty in swallowing and is scheduled to have a swallow study tomorrow. PLAN: At this time, ( ) there is no role of surgical intervention. Patient will go for physical therapy. We will follow up in my office in a month's time. Prognosis is guarded.
[2017-03-29] MEDS: LABETALOL 5 MG/ML VIAL MDV IVP PRN (20:28)
[2017-03-29 21:32] LABS: Glucose,Whole Blood 111 mg/dL (75-99)
[2017-03-30 06:09] LABS: Glucose,Whole Blood 133 mg/dL (75-99)
[2017-03-30] MEDS: INSULIN LISPRO (humaLOG) 300 UNIT/3 ML VIAL SQ SCH ×4 (06:19→22:15)
[2017-03-30 06:53] LABS: Basophils % (A) 0 %; CH 35.2; CHCM 35.6; Eosinophils # (A) 0.1 k/uL (0-0.7); Eosinophils % (A) 2 %; HCT 39.8 % (39.0-53.0); HDW 3.23; HGB 13.7 gm/dL (13.0-17.5); Luc # (Auto) 0.09; Luc % (Auto) 1; Lymphocytes # (A) 1.5 k/uL (1.0-4.8); Lymphocytes % (A) 22 %; MCH 34.2 pg (25.0-35.0); MCHC 34.3 g/dL (31.0-37.0); MCV 99.6 fL (80.0-100.0); Mean Platelet Volume 7.4; Monocytes # (A) 0.5 k/uL (0-1.0); Monocytes % (A) 7 %; Neutrophils # (A) 4.6 k/uL (1.3-7.7); Neutrophils % (A) 68 %; RDW 13.6 % (11.5-15.5); WBC 6.8 k/uL (3.8-10.6); WBC (Perox) 6.81
[2017-03-30 07:00] LABS: Anion Gap 14 mmol/L; Blood Urea Nitrogen 11 mg/dL (9-20); Calcium 8.5 mg/dL (8.4-10.2); Carbon Dioxide 21 mmol/L (22-30); Chloride 111 mmol/L (98-107); Glucose 133 mg/dL (74-99); Non-African American GFR(MDRD) >60 (>60 ml/min/1.73 sqM); Potassium 3.3 mmol/L (3.5-5.1); Sodium 146 mmol/L (137-145)
[2017-03-30] MEDS ORDERED: ASPIRIN 325 MG TAB PO SCH (09:00)
[2017-03-30] MEDS: PANTOPRAZOLE 40 MG/10 ML VIAL IVP SCH (09:29)
[2017-03-30] MEDS: HEPARIN SODIUM,PORCINE 5,000 UNIT/ML 1 ML VIAL SQ SCH ×3 (09:29→23:25)
[2017-03-30] MEDS: SODIUM CHLORIDE 0.9% 1,000 ML IV SCH ×2 (09:29→23:25)
[2017-03-30] MEDS: hydrALAZINE HCL 20 MG/ML 1 ML VIAL IVP PRN ×2 (09:40→15:18)
--- NOTE | 2017-03-30 09:52 | CDI ---
In responding to this query, please exercise your independent professional judgment. The [facility] Coding Staff and Clinical Documentation Specialists appreciate your assistance in clarifying documentation, maintaining compliance with coding guidelines, accurately documenting patients condition and capturing severity of illness. The fact that a question is asked does not imply that any particular answer is desired or expected. Communication forms are a method of clarifying documentation and are not made part of the Legal Health Record. Thank you in advance for your clarification. Last Revision, August 2015 Kristyn Saravia [address] [facility] [place] [address] Documentation Clarification Form Date: 03/30/2017 9:41:00 AM From: Steffanie Jose RN, CCDS Admit Date: 03/27/2017 11:36:00 AM Patient Name: Bradley Javier Visit Number: [id number] Dr. Demar Zambrano Patient was admitted with CVA of left MCA and Left CCA carotid stenosis. History/Risk Factors: HTN, Hyperlipidemia, DM2 Clinical Indicators: Labs: Homocysteine 35 CT/MRI result: 03/27 MRI: Large area of cerebral edema in left temporal lobe consistent with acute left MCA infarct. Consults: Neurology Treatment: IVF, SQ Heparin, IVP Labetalol PRN SBP>160 In your professional opinion, can you please clarify the underlying cause, condition or process, if any, represented by these findings? Cytotoxic cerebral edema Vasogenic cerebral edema Traumatic cerebral edema Please include with or without loss of consciousness and duration (if known) Other cerebral edema, please specify Cerebral edema, etiology unknown Intracerebral hemorrhage Please include site if known Unable to determine Other condition, please specify Please document in your progress notes and discharge summary in order to capture severity of illness and risk of mortality. Include clinical findings that support your diagnosis. FYI: Press F11 to launch patient chart Place X here if this finding has no clinical significance, is not applicable or if you are not able to provide any additional documentation. CALLIE
--- NOTE | 2017-03-30 10:34 | PN ---
DATE OF SERVICE: 03/29/2017 INTERVAL HISTORY: Mr. Javier is a 72-year-old male with past medical history of diabetes mellitus, hypertension, hyperlipidemia, brought into the ED as the patient was not able to move the right side of his body. Patient had a CT scan of the head which was showing left MCA infarct with no evidence of intracranial bleed. The patient also had a carotid artery Doppler which was showing significant occlusion of the left common carotid artery for which Dr. Hernandes from Vascular Surgery has been consulted. PT and OT on board. Today the patient is lying in his bed. He has garbled speech. He just says yes or no to most of the questions I asked him. He is able to follow commands. He is trying to speak but probably has expressive asphasia so not able to communicate. REVIEW OF SYSTEMS: Complete review of systems cannot be done as the patient has expressive aphasia. Patient's medications have been reviewed. He is on Tylenol, aspirin, heparin, hydralazine, Humalog, labetalol, Protonix. Patient's vital signs: Temperature 99.5, heart rate 69, respiratory 16, blood pressure 201/87. GENERAL EXAMINATION: Patient appears to be no acute distress. HEAD: Atraumatic, nontraumatic. No facial asymmetry. NECK: No JVD. CARDIAC: S1, S2 heard. RESPIRATORY: Bilateral breath sounds are positive. No wheeze or crackles. GI: Abdomen is soft, nontender. Bowel sounds positive. EXTREMITIES: No edema. Pulses felt. SHELVER: Patient is alert, awake, follows simple commands, oriented x1. His speech is garbled. Says yes or no to most of the questions. Possible expressive aphasia. Right-sided hemiplegia on both the right upper and lower extremities. SKIN: No rash. LABS: White count is 7.5, hemoglobin 13.9, platelets of 237. Sodium 145, potassium 3.5, chloride 111, bicarbonate 23, BUN 10, creatinine 0.90. ASSESSMENT AND PLAN: 1. Acute left MCA infarct. 2. Left common carotid artery stenosis. 3. Hypertension. 4. Hyperlipidemia. 5. Type 2 diabetes mellitus. 6. History of prostate carcinoma, status post surgery in the past. 7. History of bilateral carpal tunnel surgery. 8. Bilateral inguinal hernia repair done in the past. PLAN: The plan is to continue the patient on gastrointestinal and deep venous thrombosis prophylaxis. Neurology on board following the patient. Vascular surgery, Dr. Hernandes, did evaluate the patient but no intervention at this point of time. PT and OT on board. Overall prognosis is guarded. Will have to discuss with the family members the fpc treatment goals for the patient and further recommendations depending on the progress of the patient.
[2017-03-30 12:21] LABS: Glucose,Whole Blood 148 mg/dL (75-99)
--- NOTE | 2017-03-30 14:41 | P.CONS ---
History of Present Illness - Chief Complaint Right hemiplegia and a aphasia - History of Present Illness I had the opportunity to see patient for inpatient rehab consultation with regard to right hemiplegia and a aphasia. Patient poor historian and history elicited from chart as well as from family. 72-year-old right-handed male admitted to [facility] March 27 with acute onset right-sided weakness and aphasia. Initial head CT demonstrated large left MCA infarct as well as mild chronic sinusitis. Carotid Doppler with left distal CCA occlusion. MRI with large left temporal/MCA infarct. Chest x-ray demonstrates cardiomegaly and right base atelectasis. Seen by neurology, Dr. Boss. Speech therapy reports severe a aphasia as well as severe swallow mechanism. PT reports two- person assistance for bed mobility. OT prescribed. Previous functional history as elicited from family, son and significant other. 72-year-old right-handed male who lives with significant other (for 20 years) and a small one floor home. Retired. Noted sisters been living with him for the last couple years, off-and-on. Noted a significant other does the cooking and laundry. Patient was independent with driving, standing shower and gait without device. Juan Manuel is regular doctor. Denies tobacco or alcohol history. Family history of father of cancer and mother of NM. Review of Systems Review of systems: Patient unable to answer questions and answers elicited from chart and family. ENT: Denies sneezes or discharge. Eyes: Denies discharge or photophobia. Cardiac: Denies chest pain or palpitation. Pulmonary: Denies cough or shortness of breath. Gastrointestinal: Denies nausea, emesis, constipation, diarrhea. Genitourinary: Denies discharge or frequency. Musculoskeletal: Denies muscle or bone aches. Neurologic: Right-sided weakness and severe a aphasia. Endocrine: Denies shakes or sweats. Oncology: Denies cancers. Dermatologic: Denies rash, itching, pruritus. ALLERGY/immunology: Denies sneezes, rashes. Past Medical History Past Medical History: Diabetes Mellitus, Hyperlipidemia, Hypertension Additional Past Medical History / Comment(s): NIDDM type II, prostate cancer with surgery, diverticular dx History of Any Multi-Drug Resistant Organisms: None Reported Past Surgical History: Hernia Repair, Orthopedic Surgery, Prostate Surgery Additional Past Surgical History / Comment(s): carpal tunnel jairo., bilateral inguinal hernia surgeries, colonoscopy, bilateral cataract removal. Past Anesthesia/Blood Transfusion Reactions: No Reported Reaction Past Psychological History: No Psychological Hx Reported Additional Psychological History / Comment(s): Pt resides with his significant other of 30 yrs. He is independent. Smoking Status: Former smoker Past Alcohol Use History: Occasional Additional Past Alcohol Use History / Comment(s): Pt started smoking in 1962 and quit in 1982 Past Drug Use History: None Reported - Past Family History Mother Family Medical History: Myocardial Infarction (NM) Additional Family Medical History / Comment(s): Mother of a NM in her 80's Father Family Medical History: Myocardial Infarction (NM) Additional Family Medical History / Comment(s): Father of a NM in his 80's. Medications and Allergies Home Medications Medication Instructions Recorded Confirmed Type Atenolol [Tenormin] 50 mg PO DAILY 10/07/16 03/27/17 History Fenofibrate Nanocrystallized 145 mg PO DAILY 10/07/16 03/27/17 History [Fenofibrate] Multivitamins, Thera [Multivitamin] 1 tab PO DAILY 10/07/16 03/27/17 History [place]-3 Acid Ethyl Esters [Lovaza] 2 gm PO BID 10/07/16 03/27/17 History Pravastatin Sodium [Pravachol] 20 mg PO DAILY 10/07/16 03/27/17 History Ramipril [Altace] 15 mg PO DAILY 10/07/16 03/27/17 History glipiZIDE [Glucotrol] 5 mg PO AC-BRKFST 10/07/16 03/27/17 History metFORMIN HCL [metFORMIN HCL ER] 500 mg PO QID 10/07/16 03/27/17 History Levocetirizine Dihydrochloride 5 mg PO DAILY 03/27/17 03/27/17 History Allergies Allergy/AdvReac Type Severity Reaction Status Date / Time Penicillins Allergy Rash/Hives Verified 10/10/16 07:20 Physical Exam Vitals: Vital Signs Temp Pulse Resp BP Pulse Ox 03/30/17 11:51 77 18 159/76 93 L 03/30/17 08:00 97.8 F 69 18 201/85 93 L 03/30/17 04:00 98.9 F 73 16 158/71 93 L 03/30/17 00:00 98.6 F 71 16 153/71 97 06/11/17 20:00 98.7 F 75 18 178/79 94 L 03/29/17 18:50 175/79 03/29/17 16:00 99.5 F 69 16 201/87 97 Intake and Output 03/29/17 03/30/17 03/30/17 22:59 06:59 14:59 Intake Total 600 120 Balance 600 120 Intake: Intake, IV Titration 600 Amount Sodium Chloride 0.9% 1, 600 000 ml @ 100 mls/hr IV . Q10H [facility] Rx#:[id number] Oral 120 Other: Voiding Method Diaper Diaper Diaper # Voids 1 2 1 Weight 104 kg Skin: Mildly atrophic. General: Overweight and comfortable appearance. Head: Normocephalic, atraumatic. Eyes: Symmetric. Pupils equal round. Ears: Symmetric. Hearing appears intact. Mouth: Clear. Neck: Supple. Carotid without bruit. Cardiac: Regular rate and rhythm. Lungs: Clear anteriorly and posteriorly. Abdomen: Soft active nontender. Overweight. Extremities: Normal tone. Neurological: Mental status: Alert, cooperative, pleasant. Cranial nerves: Symmetric facial tone and trapezius. Motor: Response to noxious stimulus locally left arm and leg. Not to right side. Right side appears flaccid. Sensation: Response to noxious to miss left side but not right. DTRs: Symmetric and equal throughout. Mobility: Did not attempt to sit or stand on my own. Results CBC & Chem 7: 03/30/17 06:26 03/30/17 06:26 Labs: Abnormal Lab Results - Last 24 Hours (Table) 03/28/17 03/29/17 03/29/17 Range/Units 06:03 16:54 21:26 RBC (4.30-5.90) m/uL Sodium (137-145) mmol/L Potassium (3.5-5.1) mmol/L Chloride (98-107) mmol/L Carbon Dioxide (22-30) mmol/L Glucose (74-99) mg/dL POC Glucose (mg/dL) 106 H 111 H (75-99) mg/dL Homocysteine 35.00 H (4.00-14.00) umol/L 03/30/17 03/30/17 03/30/17 Range/Units 06:07 06:26 06:26 RBC 4.00 L (4.30-5.90) m/uL Sodium 146 H (137-145) mmol/L Potassium 3.3 L (3.5-5.1) mmol/L Chloride 111 H (98-107) mmol/L Carbon Dioxide 21 L (22-30) mmol/L Glucose 133 H (74-99) mg/dL POC Glucose (mg/dL) 133 H (75-99) mg/dL Homocysteine (4.00-14.00) umol/L 03/30/17 Range/Units 12:08 RBC (4.30-5.90) m/uL Sodium (137-145) mmol/L Potassium (3.5-5.1) mmol/L Chloride (98-107) mmol/L Carbon Dioxide (22-30) mmol/L Glucose (74-99) mg/dL POC Glucose (mg/dL) 148 H (75-99) mg/dL Homocysteine (4.00-14.00) umol/L Microbiology - Last 24 Hours (Table) 03/29/17 03:00 Urine Culture - Final Urine,Catheterized 03/28/17 18:11 Blood Culture - Preliminary Blood No Growth after 24 hours 03/28/17 17:57 Blood Culture - Preliminary Blood No Growth after 24 hours Chest x-ray: report reviewed (Artery megaly and right base atelectasis.) CT Scan - head: report reviewed (Large left MCA infarct. Chronic mild sinusitis.) MRI - head: report reviewed (Large left temporal/MCA infarct.) Assessment and Plan (1) Cerebrovascular accident Status: Acute Plan: Impression: 1. Gait disturbance. 2. Right hemiplegia and aphasia due to large left MCA infarct. 3. Hypertension. 4. Dyslipidemia. 5. Diabetes. Comments and plan: At this time will follow PT, OT, NATURAL FABRIC[employer] with yourself. Patient currently significant two-person assist. Family currently would be unable to handle patient home. Effective family's requirement is that patient be independent physically with transfers and mobility and basic self-care function , that is they are not able to provide any physical assistance. Significant other can continue to do homemaking tasks as previously. Rehab prognosis currently guarded.
[2017-03-30 16:20] LABS: Glucose,Whole Blood 148 mg/dL (75-99)
[2017-03-30] MEDS: LABETALOL 5 MG/ML VIAL MDV IVP PRN ×2 (17:30→23:23)
[2017-03-30 20:38] LABS: Glucose,Whole Blood 178 mg/dL (75-99)
--- NOTE | 2017-03-30 20:53 | P.PN ---
Subjective Principal diagnosis: CVAright sided neglect Neurology is following a 72-year-old man was brought to the emergency department with a CVA. Patient was originally observed prior to going to sleep without any deficits. Patient with an active lifestyle prior to incident. Patient had no prior history of CVA or TIA. Patient is nondiabetic. Time of transfer with EMS patient's blood sugar was 150. While in transport the patient denied any pain or confusion. Initially patient was able to answer questions for EMS and ED providers. CT of the brain noted atrophic changes, periventricular white matter lucency compatible with chronic white matter ischemic change. Loss of graywhite differentiation along the insular cortex and extending into the left parietal region. Mild mass effect. Patient's MRI of the brain noted Acute left MCA infarct. No evidence of intracranial hemorrhage. Patient's carotid Doppler study noted occlusion of the left common carotid artery. Patient is known to have a history of hypertension, hyperlipidemia and diabetes. It is uncertain how well controlled the patient's diabetic status was prior to admission. 03/30/17: On contact, today patient was awake spine in bed. Patient still exhibited significant right-sided krunal-neglect, facial droop and inability to answer questions appropriately, formula complete thoughts or ideas. Patient did attempt to ask questions but could only get one word stated repeatedly which could include; "nope, yup, wet" when appearing to attempt to ask a question that was unrelated to those 3 words. Patient still has expressive aphasia, significant cognitive loss. He does appear significantly more alert to self and surroundings. Per nursing staff he was utilizing his left hand to attempt to eat limited food. Nursing reports he did pass his swallow study today. 03/29/17 On contact today, patient was awake supine in bed with family in the room. Patient still exhibited significant right-sided krunal-neglect, facial droop and inability to answer questions appropriately, formulate complete thoughts or ideas and or engage in interactive purposeful communication. Per nursing and family patient appears to wax and wane with regard to his ability to answer questions or follow commands. Patient's SBP was > 200 today and per nursing was elevated the last several hours before patient was rounded on today. Objective - Vital Signs Vital signs: Vital Signs Temp 97.8 F 03/30/17 08:00 Pulse 82 03/30/17 18:00 Resp 18 03/30/17 18:00 BP 133/63 03/30/17 18:00 Pulse Ox 96 03/30/17 18:00 Intake & Output 03/30/17 03/30/17 03/31/17 06:59 18:59 06:59 Intake Total 600 1160 Balance 600 1160 Weight 104 kg Intake: Intake, IV Titration 600 800 Amount Sodium Chloride 0.9% 1, 600 800 000 ml @ 100 mls/hr IV . Q10H [facility] Rx#:[id number] Oral 360 Other: Voiding Method Diaper Diaper # Voids 2 4 - Exam Constitutional: AOx1, Awake HEENT: NC/AT, Right facial asymmetry is seen. Throat: Supple, no masses Respiratory: No increased work of breathing Cardiac: Regular rate and Rhythm, Telemetry monitoring GI: non tender, non distended Musculoskeletal: Knotter Hand strengths are unequal Complete right upper lower extremity neglect. Left upper and lower extremities are 3/5. Neurological: Patient is awake, speech and language are garbled with inaccurate responses when provided, right sided unilateralizing weakness (UE & LE), no seizure activity note on physical exam. Sensation was abnormal. Does not withdraw to pain on the right side. Integementary: no rash, no erythema Psychiatric: flat - Labs CBC & Chem 7: 03/30/17 06:26 03/30/17 06:26 Labs: Abnormal Lab Results - Last 24 Hours (Table) 03/28/17 03/29/17 03/30/17 Range/Units 06:03 21:26 06:07 RBC (4.30-5.90) m/uL Sodium (137-145) mmol/L Potassium (3.5-5.1) mmol/L Chloride (98-107) mmol/L Carbon Dioxide (22-30) mmol/L Glucose (74-99) mg/dL POC Glucose (mg/dL) 111 H 133 H (75-99) mg/dL Homocysteine 35.00 H (4.00-14.00) umol/L 03/30/17 03/30/17 03/30/17 Range/Units 06:26 06:26 12:08 RBC 4.00 L (4.30-5.90) m/uL Sodium 146 H (137-145) mmol/L Potassium 3.3 L (3.5-5.1) mmol/L Chloride 111 H (98-107) mmol/L Carbon Dioxide 21 L (22-30) mmol/L Glucose 133 H (74-99) mg/dL POC Glucose (mg/dL) 148 H (75-99) mg/dL Homocysteine (4.00-14.00) umol/L 03/30/17 Range/Units 16:15 RBC (4.30-5.90) m/uL Sodium (137-145) mmol/L Potassium (3.5-5.1) mmol/L Chloride (98-107) mmol/L Carbon Dioxide (22-30) mmol/L Glucose (74-99) mg/dL POC Glucose (mg/dL) 148 H (75-99) mg/dL Homocysteine (4.00-14.00) umol/L Microbiology - Last 24 Hours (Table) 03/28/17 18:11 Blood Culture - Preliminary Blood No Growth after 48 hours 03/28/17 17:57 Blood Culture - Preliminary Blood No Growth after 48 hours 03/29/17 03:00 Urine Culture - Final Urine,Catheterized Assessment and Plan (1) Carotid stenosis, left Status: Acute (2) Type 2 diabetes mellitus Status: Acute (3) Hypertension Status: Acute (4) Hyperlipidemia Status: Acute (5) Cerebrovascular accident Status: Acute Plan: 1. CVAleft MCA 2. Carotid stenosisleft CCA 3. Hypertension 4. Hyperlipidemia 5. Type 2 diabetes CVA, carotid stenosis: Based on results of imaging, the patient has a confirmed significant left MCA CVA with an additional left CCA occlusion. On exam the patient has complete right upper and lower extremity neglect and deficits. Patient has expressive aphasia, difficulty swallowing and difficulty with memory and recall. Patient has made no neurological improvement in the last 24 hours, but does appear more alert and aware of his surroundings. It does appear that the patient's cognition and speech has stabilized with intermittent waxing and waning. Hypertension: Maintain SBP between 140 and 160. Patient's SBP was > 200 and protocols were given: Hydralazine 10 mg, IV push Q4hrs prn for SBP>160 and Labetalol 10 mg, Q4hrs, IV push for SBP> 160. Hyperlipidemia: Lipid panel noted elevated trigycerides, low HDL Type 2 diabetes: Continue POC glucose testing, continue sliding scale insulin coverage orders Ordered-status: SCD's- continue per previous order Protonix 40 mg dailyGI prophylaxis- continue Heparin 5000 units every 8 hours subcutaneous for DVT prophylaxis- continue Rectal aspirincontinue with existing regimen PT and OT - continue per existing plan of care Vascular consult- no intervention recommended Neuro checks as ordered Telemetry monitoring as orderedcontinuous unless discontinue by cardiology and neurology Diet: Per recommendations by speech therapy Repeat Swallow study: Patient did pass a swallow study EEG:taken Serum homocysteine: Elevated but at this point and is unable to determine if it stress-induced. Repeat level in one month. A1C: 6.1 Prescriptions to be started and continued at discharge: Discontinue 325 mg aspirin, start 81 mg ASA as it can be crushed, start Plavix 75 mg daily at bedtime and Lipitor 80 mg daily at bedtime. Physical rehabilitation provider has already seen the patient defer placement recommendations and rehabilitation plan to Dr. Hicks. Neurology will clear the patient for placement and discharge him a neurological standpoint. Patient should follow up in our office once released from rehabilitation facility or within 1 month whichever is sooner. Feel free to contact our office with any questions. Prognosis: poor I discussed the patient's pertinent medical information with Dr. Lopez. He agrees with the plan of care as implemented.
[2017-03-30] MEDS: ATORVASTATIN 80 MG TAB PO SCH (22:30)
[2017-03-31 06:18] LABS: Glucose,Whole Blood 153 mg/dL (75-99)
[2017-03-31] MEDS: INSULIN LISPRO (humaLOG) 300 UNIT/3 ML VIAL SQ SCH ×4 (06:40→22:30)
--- NOTE | 2017-03-31 08:01 | EEG ---
DATE OF SERVICE: 03/30/2017 INDICATIONS FOR EXAMINATION: Stroke. AGE: 72Y DESCRIPTION OF THE PROCEDURE: This EEG was performed using a 21-channel digital electroencephalograph, following the international 10 to 20 system. DESCRIPTION OF THE RECORDING: From the beginning of the tracing, and with the patient's eyes closed, the background rhythm was mostly consisting of 8 Hz alpha frequency in the posterior occipital leads. No obvious asymmetry is seen. Occasional movement artifacts are noticed. Photic stimulation was performed with no driving response seen. No pathological waves were elicited. Hyperventilation was not performed. The patient remains awake throughout the tracing. No epileptiform discharges were seen. His EKG lead showed a regular rate and rhythm. INTERPRETATION: This awake EEG can be considered within normal limits. There was no asymmetry seen. No epileptiform discharges were noticed. The absence of epileptiform discharges does not rule out the diagnosis of epilepsy, therefore, clinical correlation is recommended.
[2017-03-31] MEDS: ASPIRIN 81 MG CHEW PO SCH (08:38)
[2017-03-31] MEDS: HEPARIN SODIUM,PORCINE 5,000 UNIT/ML 1 ML VIAL SQ SCH ×2 (08:38→15:34)
[2017-03-31] MEDS: PANTOPRAZOLE 40 MG/10 ML VIAL IVP SCH (08:38)
[2017-03-31] MEDS: CLOPIDOGREL 75 MG TAB PO SCH (08:38)
[2017-03-31] MEDS: SODIUM CHLORIDE 0.9% 1,000 ML IV SCH ×2 (08:39→15:35)
[2017-03-31 11:44] LABS: Glucose,Whole Blood 200 mg/dL (75-99)
[2017-03-31 17:03] LABS: Glucose,Whole Blood 161 mg/dL (75-99)
[2017-03-31 21:08] VITALS: RESP 18
[2017-03-31 21:14] LABS: Glucose,Whole Blood 242 mg/dL (75-99)
[2017-03-31] MEDS: ATORVASTATIN 80 MG TAB PO SCH (22:30)
[2017-04-01 06:04] LABS: Glucose,Whole Blood 173 mg/dL (75-99)
[2017-04-01] MEDS: SODIUM CHLORIDE 0.9% 1,000 ML IV SCH ×2 (06:58→16:02)
[2017-04-01] MEDS: INSULIN LISPRO (humaLOG) 300 UNIT/3 ML VIAL SQ SCH ×2 (06:59→12:09)
[2017-04-01] MEDS: HEPARIN SODIUM,PORCINE 5,000 UNIT/ML 1 ML VIAL SQ SCH ×3 (07:59→16:02)
[2017-04-01] MEDS: CLOPIDOGREL 75 MG TAB PO SCH (08:00)
[2017-04-01] MEDS: ASPIRIN 81 MG CHEW PO SCH (08:00)
[2017-04-01] MEDS: PANTOPRAZOLE 40 MG/10 ML VIAL IVP SCH (08:00)
[2017-04-01 09:36] VITALS: TEMP 98.1
--- NOTE | 2017-04-01 11:15 | PN ---
DATE OF SERVICE: 03/30/2017 Patient is a pleasant 72-year-old white male. The patient was admitted through the weekend after suffering a left middle cerebral artery infarct with a right hemiparesis. The patient has started to talk this morning, but very limited. His speech is garbled. He is undergoing a swallow study at this time. He seems in no acute distress. PHYSICAL EXAM: His vitals are stable. GENERAL: He is alert. EYES: Opening. He seems to be following simple commands. Head is normocephalic and atraumatic. NECK: Supple. No JVD. HEART: Regular rate and rhythm. LUNGS: Diminished breath sounds, but no wheezing or crackles. ABDOMEN: Soft, nontender. EXTREMITIES: No cyanosis, clubbing or jaundice. NEUROLOGICAL: See neurological consultation. IMPRESSIONS: 1. Acute left MCA cerebrovascular accident. 2. Right hemiparesis. 3. Diabetes type 2. 4. Hypertension and hypertensive cardiovascular disease. 5. Hyperlipidemia. 6. Prostate cancer, status post prostatectomy. PLAN: Continue with PT, OT, neurological consultation. Vascular surgery said that there would be no intervention at this point. Continue to follow patient's overall guarded ( ).
--- NOTE | 2017-04-01 11:21 | PN ---
DATE OF SERVICE: 03/31/2017 Patient is a pleasant 72-year-old white male who was admitted for acute stroke. He underwent a swallow evaluation, which he is cleared for thick nectar-type liquids with aspiration precautions, no straws and consistent carbohydrate. Dysphagia type I diet. He is seen by rehab who was assessing his extent of his stroke. He seems to be talking better today. He seems to be more aware of his surroundings and answering questions more appropriately. PHYSICAL EXAM: His vital signs are stable. He is afebrile. HEENT: Head is normocephalic and atraumatic. NECK: Supple. No JVD. HEART: Regular rate and rhythm. NEUROLOGICAL: Unchanged with a right hemiparesis. IMPRESSION: 1. Acute left middle cerebral artery cerebrovascular accident. 2. Right hemiplegia and aphasia secondary to the stroke. 3. Hypertensive cardiovascular disease. 4. Diabetes. 5. Hyperlipidemia. PLAN: Continue OT, PT. Rehab consultation in progress. Anticipate transfer to rehab facility within 24 hours.
[2017-04-01 12:01] LABS: Glucose,Whole Blood 239 mg/dL (75-99)
[2017-04-01 12:27] VITALS: BP 174/84; PULSE 72
--- NOTE | 2017-04-01 14:23 | DS ---
DATE OF ADMISSION: 03/27/2017 DATE OF DISCHARGE: 04/01/2017 FINAL DIAGNOSES: 1. Acute Left middle cerebral artery infarct stroke with a right hemiparesis. 2. Aphasia. 3. Diabetes type 2 mainly not very well controlled. 4. Gait dysfunction secondary to stroke. 5. Hyperlipidemia. 6. Difficulty swallowing, 7. Apparent cognitive memory and recall problem. The patient was seen by neurology and cleared from a neurological standpoint for discharge to an inpatient rehab facility with follow-ups in one month. He is to discontinue aspirin at 325 mg but he was started on Plavix 75 mg at bedtime. And Aspirin 81 mg daily, Lipitor 80 mg daily Tenormin 50 mg daily. Theofibrate 145 daily. Lavazza 2 grams p.o. b.i.d., Pravachol discontinued. Altace 50 mg 1 daily. Glucotrol 5 mg a.c. breakfast. Metformin 500 mg t.i.d. HOSPITAL COURSE: Patient is a pleasant 72-year-old white male who suffered a left middle cerebral artery infarct with a right hemiparesis and expressive aphasia and dysphagia. He was in the hospital for several days seen by neurology. PT and OT, recommended inpatient rehabilitation arrangements were being made and the patient will be transferred today. Patient's prognosis is guarded and his recovery depends on the extent of the infarct. Continue rehab in hopes of returning to activities of daily living.
--- NOTE | 2017-04-01 16:08 | FL ---
EXAMINATION TYPE: FL barium swallow w video DATE OF EXAM: 04/01/2017 COMPARISON: NONE HISTORY: Fall study, abnormal bedside exam TECHNIQUE: Fluoroscopy. FINDINGS: Fluoroscopic guidance was provided for the procedure performed in conjunction with the [facility] ech pathology department. Please see complete report forthcoming from the Speech Pathology departmen t. Various consistencies from thin liquid to solids were administered. Penetration was evident with thin liquids. No definite aspiration was identified. There is significant pooling within the vallecula. With solid consistencies there may be marked delay of transit with retention through the hypopharynx. IMPRESSION: 1. Transient penetration with thin liquids. 2. Marked hesitancy. 3. Retention within the hypopharynx during swallowing. 4. Please see complete report forthcoming from the speech pathology department.
[2017-04-01 17:10] LABS: Glucose,Whole Blood 192 mg/dL (75-99)
--- NOTE | 2017-04-07 13:42 | CDI ---
In responding to this query, please exercise your independent professional judgment. The [facility] Coding Staff and Clinical Documentation Specialists appreciate your assistance in clarifying documentation, maintaining compliance with coding guidelines, accurately documenting patients condition and capturing severity of illness. The fact that a question is asked does not imply that any particular answer is desired or expected. Communication forms are a method of clarifying documentation and are not made part of the Legal Health Record. Thank you in advance for your clarification. Last Revision, August 2015 Kristyn Saravia [address] [place] [address] Documentation Clarification Form 2nd Request Date: 03/30/2017 9:41:00 AM From: Steffanie Jose RN, CCDS Admit Date: 03/27/2017 11:36:00 AM Patient Name: Bradley Javier Visit Number: [id number] Dr. Demar Zambrano Patient was admitted with CVA of left MCA and Left CCA carotid stenosis. . History/Risk Factors: HTN, Hyperlipidemia, DM2 Clinical Indicators: Labs: Homocysteine 35 CT/MRI result: 03/27 MRI: Large area of cerebral edema in left temporal lobe consistent with acute left MCA infarct. Consults: Neurology Treatment: IVF, SQ Heparin, IVP Labetalol PRN SBP>160 In your professional opinion, can you please clarify the underlying cause, condition or process, if any, represented by these findings? Cytotoxic cerebral edema Vasogenic cerebral edema Traumatic cerebral edema Please include with or without loss of consciousness and duration (if known) Other cerebral edema, please specify Cerebral edema, etiology unknown Intracerebral hemorrhage Please include site if known Unable to determine Other condition, please specify Please document in your progress notes and discharge summary in order to capture severity of illness and risk of mortality. Include clinical findings that support your diagnosis. FYI: Press F11 to launch patient chart Place X here if this finding has no clinical significance, is not applicable or if you are not able to provide any additional documentation. CALLIE
== END 2017-04-01 18:32 | DRG 64 ==
LOC: EC 10:45 → 6SEL 11:36
PROVIDERS: ADMIT Family Medicine; ATTEND Family Medicine
DX: I63.512 Cerebral infarction due to unspecified occlusion or stenosis of left middle cerebral artery (principal); G93.6 Cerebral edema; G81.91 Hemiplegia, unspecified affecting right dominant side; R41.4 Neurologic neglect syndrome; J98.11 Atelectasis; I11.9 Hypertensive heart disease without heart failure; E11.9 Type 2 diabetes mellitus without complications; R47.01 Aphasia; R13.10 Dysphagia, unspecified; R29.810 Facial weakness; I65.22 Occlusion and stenosis of left carotid artery; R26.9 Unspecified abnormalities of gait and mobility; E78.5 Hyperlipidemia, unspecified; Z87.891 Personal history of nicotine dependence; Z85.46 Personal history of malignant neoplasm of prostate; Z90.79 Acquired absence of other genital organ(s); Z98.42 Cataract extraction status, left eye; Z98.41 Cataract extraction status, right eye; Z88.0 Allergy status to penicillin; Z79.84 Long term (current) use of oral hypoglycemic drugs; Z79.899 Other long term (current) drug therapy
CPT/HCPCS: 36415; 70450; 70553; 71010; 74230; 80048; 80053; 80061; 81001; 82550; 82553; 83036; 83090; 84484; 85025; 85610; 85730; 87040; 87086; 93005; 93306; 93880; 94760; 95819; 96361; 96374; 99285

== ENCOUNTER 2017-04-15 18:17 | Emergency (ER) | payer MEDICARE ==
[2017-04-15] MEDS ORDERED: SODIUM CHLORIDE 0.9% 1,000 ML IV STA (18:34)
[2017-04-15 18:35] LABS: Glucose,Whole Blood 249 mg/dL (75-99)
--- NOTE | 2017-04-15 18:39 | ED ---
General Adult HPI - General Stated complaint: Altered Mental Status Time Seen by Provider: 04/15/17 18:29 Source: RN notes reviewed, old records reviewed - History of Present Illness Initial comments: This is a 72-year-old male here for evaluation regarding altered mental status, patient's not eating and acting appropriately. 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 Patient unable to give complaining history. Patient did have a fall at extended care facility with head injury, patient states the family states was x-rays of the time but they're unsure of results. Patient himself is complaining of generalized pain. But he is unable to communicate that with words. Patient and chart deny any recent history of fever but patient has had decreased appetite, is not eating or drinking - Related Data Home Medications Medication Instructions Recorded Confirmed Atenolol [Tenormin] 50 mg PO DAILY 10/07/16 03/27/17 Fenofibrate Nanocrystallized 145 mg PO DAILY 10/07/16 03/27/17 [Fenofibrate] Multivitamins, Thera [Multivitamin 1 tab PO DAILY 10/07/16 03/27/17 (formulary)] [place]reford-3 Acid Ethyl Esters [Lovaza] 2 gm PO BID 10/07/16 03/27/17 Ramipril [Altace] 15 mg PO DAILY 10/07/16 03/27/17 glipiZIDE [Glucotrol] 5 mg PO AC-BRKFST 10/07/16 03/27/17 metFORMIN HCL [metFORMIN HCL ER] 500 mg PO QID 10/07/16 03/27/17 Levocetirizine Dihydrochloride 5 mg PO DAILY 03/27/17 03/27/17 Previous Rx's Medication Instructions Recorded Aspirin 81 mg PO DAILY 04/01/17 Atorvastatin [Lipitor] 80 mg PO HS tab 04/01/17 Clopidogrel [Plavix] 75 mg PO DAILY tab 04/01/17 INSULIN LISPRO (humaLOG) [humaLOG 0 unit SQ ACHS vial 04/01/17 (formulary)] Allergies Allergy/AdvReac Type Severity Reaction Status Date / Time Penicillins Allergy Rash/Hives Verified 10/10/16 07:20 Review of Systems ROS Statement: Those systems with pertinent positive or pertinent negative responses have been documented in the HPI. ROS Other: All systems not noted in ROS Statement are negative. Past Medical History Past Medical History: Diabetes Mellitus, Hyperlipidemia, Hypertension Additional Past Medical History / Comment(s): NIDDM type II, prostate cancer with surgery, diverticular dx History of Any Multi-Drug Resistant Organisms: None Reported Past Surgical History: Hernia Repair, Orthopedic Surgery, Prostate Surgery Additional Past Surgical History / Comment(s): carpal tunnel jairo., bilateral inguinal hernia surgeries, colonoscopy, bilateral cataract removal. Past Anesthesia/Blood Transfusion Reactions: No Reported Reaction Past Psychological History: No Psychological Hx Reported Additional Psychological History / Comment(s): Pt resides with his significant other of 30 yrs. He is independent. Smoking Status: Former smoker Past Alcohol Use History: Occasional Additional Past Alcohol Use History / Comment(s): Pt started smoking in 1962 and quit in 1982 Past Drug Use History: None Reported - Past Family History Mother Family Medical History: Myocardial Infarction ([place]) Additional Family Medical History / Comment(s): Mother of a [place] in her 80's Father Family Medical History: Myocardial Infarction ([place]) Additional Family Medical History / Comment(s): Father of a [place] in his 80's. General Exam - General Exam Comments Initial Comments: Right-sided hemiparesis, aphasia General appearance: alert, in no apparent distress Head exam: Present: atraumatic, normocephalic, normal inspection Eye exam: Present: normal appearance, PERRL, EOMI. Absent: scleral icterus, conjunctival injection, periorbital swelling ENT exam: Present: normal exam, mucous membranes moist Neck exam: Present: normal inspection. Absent: tenderness, meningismus, lymphadenopathy Respiratory exam: Present: normal lung sounds bilaterally. Absent: respiratory distress, wheezes, rales, rhonchi, stridor Cardiovascular Exam: Present: regular rate, normal rhythm, normal heart sounds. Absent: systolic murmur, diastolic murmur, rubs, gallop, clicks GI/Abdominal exam: Present: soft, normal bowel sounds. Absent: distended, tenderness, guarding, rebound, rigid Extremities exam: Present: normal inspection, full ROM, normal capillary refill. Absent: tenderness, pedal edema, joint swelling, calf tenderness Back exam: Present: normal inspection Neurological exam: Present: alert, oriented X3, CN II-XII intact Psychiatric exam: Present: normal affect, normal mood Skin exam: Present: warm, dry, intact, normal color. Absent: rash Course Vital Signs 04/15/17 18:20 Temperature 97 F L Pulse Rate 88 Respiratory 20 Rate Blood Pressure 119/57 O2 Sat by Pulse 99 Oximetry - Reevaluation(s) Reevaluation #1: 04/15/17 19:54 Patient is improving with hydration, EKG Findings - EKG Comments: EKG Findings:: EKG shows normal sinus rhythm rate of 89, MA 162, QRS 134, QTC 498 Medical Decision Making - Medical Decision Making 72 mallei for evaluation. Patient presents here for evaluation of altered mental status, dehydration, refusing to eat or drink. Patient's severe renal failure secondary to dehydration, we'll admit for nephrology evaluation rehydration - Lab Data Result diagrams: 04/15/17 18:35 04/15/17 18:35 Lab Results 04/15/17 04/15/17 04/15/17 Range/Units 18:34 18:35 18:35 WBC 14.1 H (3.8-10.6) k/uL RBC 4.53 (4.30-5.90) m/uL Hgb 15.3 (13.0-17.5) gm/dL Hct 46.0 (39.0-53.0) % MCV 101.4 H (80.0-100.0) fL MCH 33.7 (25.0-35.0) pg MCHC 33.2 (31.0-37.0) g/dL RDW 12.7 (11.5-15.5) % Plt Count 374 (150-450) k/uL Neutrophils % 82 % Lymphocytes % 13 % Monocytes % 4 % Eosinophils % 0 % Basophils % 0 % Neutrophils # 11.6 H (1.3-7.7) k/uL Lymphocytes # 1.8 (1.0-4.8) k/uL Monocytes # 0.5 (0-1.0) k/uL Eosinophils # 0.0 (0-0.7) k/uL Basophils # 0.0 (0-0.2) k/uL PT (9.0-12.0) sec INR (<1.1) APTT (22.0-30.0) sec Sodium (137-145) mmol/L Potassium (3.5-5.1) mmol/L Chloride (98-107) mmol/L Carbon Dioxide (22-30) mmol/L Anion Gap mmol/L BUN (9-20) mg/dL Creatinine (0.66-1.25) mg/dL Est GFR (MDRD) Af Amer (>60 ml/min/1.73 sqM) Est GFR (MDRD) Non-Af (>60 ml/min/1.73 sqM) Glucose (74-99) mg/dL POC Glucose (mg/dL) 249 H (75-99) mg/dL POC Glu Picture Booker ID Teresita Gil Calcium (8.4-10.2) mg/dL Phosphorus (2.5-4.5) mg/dL Magnesium (1.6-2.3) mg/dL Total Bilirubin (0.2-1.3) mg/dL AST (17-59) U/L ALT (21-72) U/L Alkaline Phosphatase (38-126) U/L Total Creatine Kinase 400 H (55-170) U/L CK-MB (CK-2) 2.2 (0.0-2.4) ng/mL CK-MB (CK-2) Rel Index 0.6 Troponin I 0.041 H* (0.000-0.034) ng/mL Total Protein (6.3-8.2) g/dL Albumin (3.5-5.0) g/dL 04/15/17 04/15/17 Range/Units 18:35 18:35 WBC (3.8-10.6) k/uL RBC (4.30-5.90) m/uL Hgb (13.0-17.5) gm/dL Hct (39.0-53.0) % MCV (80.0-100.0) fL MCH (25.0-35.0) pg MCHC (31.0-37.0) g/dL RDW (11.5-15.5) % Plt Count (150-450) k/uL Neutrophils % % Lymphocytes % % Monocytes % % Eosinophils % % Basophils % % Neutrophils # (1.3-7.7) k/uL Lymphocytes # (1.0-4.8) k/uL Monocytes # (0-1.0) k/uL Eosinophils # (0-0.7) k/uL Basophils # (0-0.2) k/uL PT 12.7 H (9.0-12.0) sec INR 1.3 (<1.1) APTT 22.3 (22.0-30.0) sec Sodium 147 H (137-145) mmol/L Potassium 5.9 H (3.5-5.1) mmol/L Chloride 111 H (98-107) mmol/L Carbon Dioxide 14 L (22-30) mmol/L Anion Gap 22 mmol/L BUN 191 H* (9-20) mg/dL Creatinine 5.90 H* (0.66-1.25) mg/dL Est GFR (MDRD) Af Amer 11 (>60 ml/min/1.73 sqM) Est GFR (MDRD) Non-Af 9 (>60 ml/min/1.73 sqM) Glucose 325 H (74-99) mg/dL POC Glucose (mg/dL) (75-99) mg/dL POC Glu Picture Booker ID Calcium 9.7 (8.4-10.2) mg/dL Phosphorus 8.5 H* (2.5-4.5) mg/dL Magnesium 2.7 H (1.6-2.3) mg/dL Total Bilirubin 1.3 (0.2-1.3) mg/dL AST 51 (17-59) U/L ALT 13 L (21-72) U/L Alkaline Phosphatase 47 (38-126) U/L Total Creatine Kinase (55-170) U/L CK-MB (CK-2) (0.0-2.4) ng/mL CK-MB (CK-2) Rel Index Troponin I (0.000-0.034) ng/mL Total Protein 7.8 (6.3-8.2) g/dL Albumin 4.2 (3.5-5.0) g/dL - Radiology Data Radiology results: report reviewed (CT brain C-spine and chest x-ray and pelvis x-ray are negative for traumatic injury), image reviewed Disposition Clinical Impression: ARF (acute renal failure), Dehydration Disposition: ADMITTED IP TO THIS [facility] Condition: Serious Referrals: Demar Zambrano DO [Primary Care Provider] - 1-2 days
[2017-04-15 19:16] LABS: Basophils % (A) 0 %; CH 33.6; CHCM 33.3; Eosinophils % (A) 0 %; HGB 15.3 gm/dL (13.0-17.5); Luc # (Auto) 0.08; Luc % (Auto) 1; Lymphocytes # (A) 1.8 k/uL (1.0-4.8); Lymphocytes % (A) 13 %; MCH 33.7 pg (25.0-35.0); MCHC 33.2 g/dL (31.0-37.0); MCV 101.4 fL (80.0-100.0); Mean Platelet Volume 8.6; Monocytes # (A) 0.5 k/uL (0-1.0); Monocytes % (A) 4 %; Neutrophils # (A) 11.6 k/uL (1.3-7.7); Neutrophils % (A) 82 %; RBC 4.53 m/uL (4.30-5.90); RDW 12.7 % (11.5-15.5); WBC 14.1 k/uL (3.8-10.6); WBC (Perox) 13.62
[2017-04-15 19:25] LABS: Calcium 9.7 mg/dL (8.4-10.2); Magnesium 2.7 mg/dL (1.6-2.3); Potassium 5.9 mmol/L (3.5-5.1); Total Bilirubin 1.3 mg/dL (0.2-1.3); Total Protein 7.8 g/dL (6.3-8.2)
[2017-04-15 19:28] LABS: Phosphorous 8.5 mg/dL (2.5-4.5)
[2017-04-15 19:33] LABS: INR 1.3 (<1.1); Prothrombin Time 12.7 sec (9.0-12.0)
[2017-04-15 19:42] LABS: Partial Thromboplastin Time 22.3 sec (22.0-30.0)
[2017-04-15 19:50] LABS: Creatine Kinase MB 2.2 ng/mL (0.0-2.4)
[2017-04-15 19:51] LABS: Troponin I 0.041 ng/mL (0.000-0.034)
[2017-04-15] MEDS ORDERED: SODIUM CHLORIDE 0.9% 1,000 ML IV ONE (19:51)
--- NOTE | 2017-04-15 20:09 | CT ---
EXAMINATION TYPE: CT brain deniz mera DATE OF EXAM: 04/15/2017 COMPARISON: 03/27/2017 HISTORY: Patient poor historian. Patient has history of recent stroke. Pain. CT DLP: 1463.6 mGycm Automated exposure control for dose reduction was used. TECHNIQUE: CT scan of the head and cervical spine are performed without contrast. FINDINGS: There is gyriform high attenuation involving the left temporal lobe consistent with petec hial hemorrhage. There is generalized hypodensity in the left temporal lobe. There is very slight eff acement of the frontal horn left lateral ventricle. There is no midline shift. Calvarium is intact. The cervical vertebra are fairly normal alignment. There is mild anterior spurring at C5-C6 C6-7. Fac et joints are intact. Skull base is intact. I see no fracture. IMPRESSION: Subacute left temporal lobe infarct with gyriform hemorrhage in the left temporal lobe that is new co mpared to old CT scan. No evidence of any new infarct. Cerebral atrophy. This exam was discussed with the ER nurse sofy at 8:00 PM. Mild spondylotic changes in the lower cervical spine. No fracture.
--- NOTE | 2017-04-15 20:12 | XR ---
EXAMINATION TYPE: XR chest 1V DATE OF EXAM: 04/15/2017 COMPARISON: 03/28/2017 HISTORY: Altered mental status TECHNIQUE: Single frontal view of the chest is obtained. FINDINGS: There is poor inspiration. There is mild pulmonary congestion. There are chest leads. I se e no definite pleural effusion. IMPRESSION: There is mild pulmonary congestion that is improved compared to last examination consist ent with resolving heart failure. No definite pulmonary consolidation. Atheromatous aorta.
--- NOTE | 2017-04-15 20:13 | XR ---
EXAMINATION TYPE: XR pelvis AP view DATE OF EXAM: 04/15/2017 COMPARISON: NONE HISTORY: Altered mental status pain TECHNIQUE: Single view FINDINGS: Pelvic ring is intact. Proximal femurs are intact. There is a 1 cm oval-shaped calcificatio n in the pelvis on the left side that could be a large bladder stone. IMPRESSION: Possible bladder calculus. No fracture.
--- NOTE | 2017-04-15 20:16 | ED ---
Medical Decision Making - Medical Decision Making 72 male here for evaluation. Patient presented to evaluation with decreased mental status, decreased appetite, Renal failure. CT of the patient's brain does appear to show transformation of CVA 2 hemorrhagic infarct - Lab Data Result diagrams: 04/15/17 18:35 04/15/17 18:35 Lab Results 04/15/17 04/15/17 04/15/17 Range/Units 18:34 18:35 18:35 WBC 14.1 H (3.8-10.6) k/uL RBC 4.53 (4.30-5.90) m/uL Hgb 15.3 (13.0-17.5) gm/dL Hct 46.0 (39.0-53.0) % MCV 101.4 H (80.0-100.0) fL MCH 33.7 (25.0-35.0) pg MCHC 33.2 (31.0-37.0) g/dL RDW 12.7 (11.5-15.5) % Plt Count 374 (150-450) k/uL Neutrophils % 82 % Lymphocytes % 13 % Monocytes % 4 % Eosinophils % 0 % Basophils % 0 % Neutrophils # 11.6 H (1.3-7.7) k/uL Lymphocytes # 1.8 (1.0-4.8) k/uL Monocytes # 0.5 (0-1.0) k/uL Eosinophils # 0.0 (0-0.7) k/uL Basophils # 0.0 (0-0.2) k/uL PT (9.0-12.0) sec INR (<1.1) APTT (22.0-30.0) sec Sodium (137-145) mmol/L Potassium (3.5-5.1) mmol/L Chloride (98-107) mmol/L Carbon Dioxide (22-30) mmol/L Anion Gap mmol/L BUN (9-20) mg/dL Creatinine (0.66-1.25) mg/dL Est GFR (MDRD) Af Amer (>60 ml/min/1.73 sqM) Est GFR (MDRD) Non-Af (>60 ml/min/1.73 sqM) Glucose (74-99) mg/dL POC Glucose (mg/dL) 249 H (75-99) mg/dL POC Glu Lease Attendant ID Teresita Gil Calcium (8.4-10.2) mg/dL Phosphorus (2.5-4.5) mg/dL Magnesium (1.6-2.3) mg/dL Total Bilirubin (0.2-1.3) mg/dL AST (17-59) U/L ALT (21-72) U/L Alkaline Phosphatase (38-126) U/L Total Creatine Kinase 400 H (55-170) U/L CK-MB (CK-2) 2.2 (0.0-2.4) ng/mL CK-MB (CK-2) Rel Index 0.6 Troponin I 0.041 H* (0.000-0.034) ng/mL Total Protein (6.3-8.2) g/dL Albumin (3.5-5.0) g/dL 04/15/17 04/15/17 Range/Units 18:35 18:35 WBC (3.8-10.6) k/uL RBC (4.30-5.90) m/uL Hgb (13.0-17.5) gm/dL Hct (39.0-53.0) % MCV (80.0-100.0) fL MCH (25.0-35.0) pg MCHC (31.0-37.0) g/dL RDW (11.5-15.5) % Plt Count (150-450) k/uL Neutrophils % % Lymphocytes % % Monocytes % % Eosinophils % % Basophils % % Neutrophils # (1.3-7.7) k/uL Lymphocytes # (1.0-4.8) k/uL Monocytes # (0-1.0) k/uL Eosinophils # (0-0.7) k/uL Basophils # (0-0.2) k/uL PT 12.7 H (9.0-12.0) sec INR 1.3 (<1.1) APTT 22.3 (22.0-30.0) sec Sodium 147 H (137-145) mmol/L Potassium 5.9 H (3.5-5.1) mmol/L Chloride 111 H (98-107) mmol/L Carbon Dioxide 14 L (22-30) mmol/L Anion Gap 22 mmol/L BUN 191 H* (9-20) mg/dL Creatinine 5.90 H* (0.66-1.25) mg/dL Est GFR (MDRD) Af Amer 11 (>60 ml/min/1.73 sqM) Est GFR (MDRD) Non-Af 9 (>60 ml/min/1.73 sqM) Glucose 325 H (74-99) mg/dL POC Glucose (mg/dL) (75-99) mg/dL POC Glu Lease Attendant ID Calcium 9.7 (8.4-10.2) mg/dL Phosphorus 8.5 H* (2.5-4.5) mg/dL Magnesium 2.7 H (1.6-2.3) mg/dL Total Bilirubin 1.3 (0.2-1.3) mg/dL AST 51 (17-59) U/L ALT 13 L (21-72) U/L Alkaline Phosphatase 47 (38-126) U/L Total Creatine Kinase (55-170) U/L CK-MB (CK-2) (0.0-2.4) ng/mL CK-MB (CK-2) Rel Index Troponin I (0.000-0.034) ng/mL Total Protein 7.8 (6.3-8.2) g/dL Albumin 4.2 (3.5-5.0) g/dL - Radiology Data Radiology results: report reviewed (CT brain positive for hemorrhagic infarct of left temporal lobe), image reviewed Disposition Clinical Impression: ARF (acute renal failure), Dehydration, Hemorrhagic cerebrovascular accident ( CVA) Disposition: OTHER INSTITUTION NOT DEFINED Condition: Serious Referrals: Demar Zambrano DO [Primary Care Provider] - 1-2 days - Out of Hospital Transfer - Req. Specs Out of Hospital Transfer - Requested Specifics: Other Emergency Center ([facility]
[2017-04-15 20:20] VITALS: RESP 18
[2017-04-15 21:54] VITALS: BP 120/61; PULSE 79; TEMP 97.1
[2017-04-16] MEDS ORDERED: ENOXAPARIN 40 MG/0.4 ML SYRINGE SQ SCH (09:00)
== END 2017-04-15 21:53 | disposition short-term general hospital (02) ==
LOC: EC 18:17
DX: I63.9 Cerebral infarction, unspecified (principal); N17.9 Acute kidney failure, unspecified; E86.0 Dehydration; E11.9 Type 2 diabetes mellitus without complications; I10 Essential (primary) hypertension; Z87.891 Personal history of nicotine dependence; Z79.84 Long term (current) use of oral hypoglycemic drugs; Z79.899 Other long term (current) drug therapy; Z88.0 Allergy status to penicillin; Z85.46 Personal history of malignant neoplasm of prostate
CPT/HCPCS: 36415; 70450; 71010; 72125; 72170; 80053; 82550; 82553; 83735; 84100; 84484; 85025; 85610; 85730; 96360; 96361; 99285